=== PATIENT | female | born 1970 | race African-American/Black ===

== ENCOUNTER 2024-01-05 00:33 | Emergency (ER) | payer OTHER ==
[2024-01-05] MEDS ORDERED: NA CHLORIDE 0.9% 1,000 ML ONE (01:18)
[2024-01-05 01:25] LABS: Absolute Basophils 0.1 K/uL (0-0.5); Absolute Eosinophils 0.2 K/uL (0-0.5); Absolute Lymphocytes (CBC) 1.9 K/uL (0.7-4.9); Absolute Monocytes 0.4 K/uL (0.1-1.3); Absolute Neutrophil 3.5 K/uL (1.8-8.0); Basophils % 0.9 % (0-1.3); Eosinophils % 2.9 % (0-4.4); Hematocrit 31.7 % (36.0-45.0); Hemoglobin 10.3 g/dL (12.0-15.0); Lymphocytes % 32.2 % (15.3-44.8); MCH 25.2 pg (27.0-35.0); MCHC 32.5 g/dL (32.0-36.0); MCV 77.5 fL (80-100); MPV 8.6 fL (7.6-11.3); Monocytes % 6.1 % (3.3-12.3); Neutrophils % 57.9 % (41.7-73.7); Nucleated Red Blood Cells % 0.1 % (0-0); Platelets 201 thou/uL (152-406); RBC Red Blood Cell Count 4.09 M/uL (3.86-4.86); Red Cell Distribution Width 15.5 % (12.1-15.2)
[2024-01-05 01:32] LABS: PT Prothrombin Time 11.5 SECONDS (9.5-12.5); Protime INR 1.05
[2024-01-05 01:50] LABS: ALT/SGPT 17 U/L (13-56); AST/SGOT 20 U/L (15-37); Albumin 2.9 g/dL (3.4-5.0); Albumin/Globulin Ratio 0.8 (1.1-1.8); Alkaline Phosphatase 78 U/L (45-117); Anion Gap 8.7 mEq/L (5.0-15.0); BUN Blood Urea Nitrogen 8 mg/dL (7-18); Bicarbonate 25 mEq/L (21-32); Bilirubin Total 0.2 mg/dL (0.2-1.0); Globulin 3.6 g/dL (2.3-3.5); Glomerular Filtration Rate 73 ml/min (=/>90); Glucose Level 259 mg/dL (74-106); NT PRO-BNP 121 pg/mL (<125); Potassium 3.7 mEq/L (3.5-5.1); Protein, Total 6.5 g/dL (6.4-8.2); Sodium Level 134 mEq/L (136-145)
[2024-01-05 02:01] LABS: Bilirubin Direct < 0.2 mg/dL (0-0.2)
--- NOTE | 2024-01-05 03:40 | ER ---
Nurse's Notes [facility] Name: Jesus Manuel Lopez Age: 53 yrs Sex: Female : 1970 Arrival Date: 01/05/2024 Time: 00:33 Bed 4 Private MD: Diagnosis: Muscle weakness (generalized);Hyperglycemia associated with type 2 diabetes mellitus, generalized weakness, dizziness Presentation: 01/04 00:52 Chief complaint: Patient states: I took my normal night time medications. I went to 4 bed. I woke up with chest pain, feeling dizzy, and jittery. The pain is a stabbing pain on my heart that is 9/10. Coronavirus screen: At this time, the client does not indicate any symptoms associated with coronavirus-19. Ebola Screen: No symptoms or risks identified at this time. Initial Sepsis Screen: Does the patient meet any 2 criteria? No. Patient's initial sepsis screen is negative. Does the patient have a suspected source of infection? No. Patient's initial sepsis screen is negative. Risk Assessment: Do you want to hurt yourself or someone else? Patient reports no desire to harm self or others. Onset of symptoms was January 05, 2024. Transition of care: patient was not received from another setting of care. 00:52 Method Of Arrival: Wheelchair jb4 00:52 Acuity: TONE 2 jb4 Historical: - Allergies: 00:55 No Known Allergies; jb4 - PMHx: 00:55 HTN; DM; Herniated Disk; jb4 - PSHx: 00:55 Hysterectomy; ; jb4 - Immunization history:: Adult Immunizations up to date. - Infectious Disease History:: Denies. - Social history:: Smoking status: Patient denies any tobacco usage or history of. - Family history:: not pertinent. Screenin:03 [facility] ED Fall Risk Assessment (Adult) History of falling in the last 3 months, rv including since admission No falls in past 3 months (0 pts) Score/Fall Risk Level 0 - 2 = Low Risk Oriented to surroundings, Maintained a safe environment, Educated pt \T\ family on fall prevention, incl call for assistance when getting out of bed, Assessed \T\ reinforced patient's understanding of fall precautions. Abuse screen: Denies threats or abuse. Denies injuries from another. Nutritional screening: No deficits noted. Tuberculosis screening: No symptoms or risk factors identified. Assessment: 01:03 General: Appears comfortable, Behavior is calm, cooperative. Pain: Complains of pain in rv chest. Neuro: Level of Consciousness is awake, alert, obeys commands, Oriented to person, place, time, situation. Cardiovascular: Capillary refill < 3 seconds Patient's skin is warm and dry. Cardiovascular: Rhythm is regular. Respiratory: Airway is patent Respiratory effort is even, unlabored. GI: No signs and/or symptoms were reported involving the gastrointestinal system. : No signs and/or symptoms were reported regarding the genitourinary system. Derm: Skin is intact. Vital Signs: 00:52 BP 119 / 70; Pulse 67; Resp 16; Temp 97.2(TE); Pulse Ox 99% on R/A; Weight 87.54 kg jb4 (R); Height 5 ft. 3 in. (R); Pain 9/10; 03:23 BP 132 / 77; Pulse 63; Resp 17; Pulse Ox 100% ; rv 00:52 Body Mass Index 34.19 (87.54 kg, 160.02 cm) jb4 00:52 Pain Scale: Adult jb4 Maribel Coma Score: 03:23 Eye Response: spontaneous(4). Motor Response: obeys commands(6). Verbal Response: rv oriented(5). Total: 15. 03:29 Eye Response: spontaneous(4). Motor Response: obeys commands(6). Verbal Response: sp4 oriented(5). Total: 15. ED Course: 00:37 Patient arrived in ED. im 00:55 Triage completed. jb4 00:55 Arm band placed on right wrist. jb4 01:00 Royce Allred, [place] is Primary Nurse. rv 01:03 Patient has correct armband on for positive identification. Client placed on continuous rv cardiac and pulse oximetry monitoring. NIBP monitoring applied. school bus monitor on. 01:03 No provider procedures requiring assistance completed. rv 01:05 EKG done, by ED staff. oe 01:11 Brayan Simpson MD is Attending Physician. sp4 01:11 Inserted saline lock: 20 gauge in left antecubital area, using aseptic technique. Blood rv collected. 01:15 Basic Metabolic Panel Sent. rv 01:15 CBC with Diff Sent. rv 01:15 LFT's Sent. rv 01:15 Magnesium Sent. rv 01:15 NT PRO-BNP Sent. rv 01:15 PT-INR Sent. rv 01:15 Troponin HS Sent. rv 01:15 CRP Sent. rv 01:15 T4 Free Sent. rv 01:15 TSH Sent. rv 01:40 XRAY Chest (1 view) In Process Unspecified. EDMS 03:47 IV discontinued, intact, bleeding controlled, No redness/swelling at site. Pressure rv dressing applied. Administered Medications: 01:19 Drug: NS 0.9% IV 1000 ml IV at 1 bolus Per protocol; 1000 mL bolus Route: IV; Rate: 1 rv bolus; Site: left antecubital; 03:47 Follow up: IV Status: Completed infusion rv 03:48 Follow up: IV Intake: 1000ml rv 01:20 Drug: NS 0.9% IV 1000 ml IV at 125 ml/hr continuous Route: IV; Rate: 125 ml/hr; Site: rv left antecubital; 03:47 Follow up: IV Status: Completed infusion rv Medication: 01:03 VIS not applicable for this client. rv Intake: 03:48 IV: 1000ml; Total: 1000ml. rv Outcome: 03:39 Discharge ordered by MD. aden 03:46 Discharged to home ambulatory, with family, rv 03:46 Condition: good 03:46 Discharge instructions given to patient, Instructed on discharge instructions, follow up and referral plans. medication usage, Demonstrated understanding of instructions, follow-up care, medications, Prescriptions given X 1, 03:48 Patient left the ED. rv Signatures: Dispatcher [employer] EDMS Karel Mccarty, RN RN [email or web address] Gustavo Amin Ronaldo, RN Brayan Gonzalez MD MD sp4 Annelise Hong
--- NOTE | 2024-01-05 03:40 | EDPHYS ---
Physician Documentation [facility] Name: Jesus Manuel Lopez Age: 53 yrs Sex: Female : 1970 Arrival Date: 01/05/2024 Time: 00:33 Bed 4 Private MD: ED Physician Brayan Simpson HPI: 01/04 01:11 This 53 yrs old Black Female presents to ER via Wheelchair with complaints of sp4 Palpitations, General Weakness, Dizziness. 01:22 53-year-old female presents with acute onset of dizziness and palpitations feeling sp4 unwell overall after she took tizanidine and tramadol at home for back pain with sciatica. Patient's past medical history include diabetes type 2, hypertension, hyperlipidemia, sciatica. . Historical: - Allergies: 00:55 No Known Allergies; jb4 - PMHx: 00:55 HTN; DM; Herniated Disk; jb4 - PSHx: 00:55 Hysterectomy; ; jb4 - Immunization history:: Adult Immunizations up to date. - Infectious Disease History:: Denies. - Social history:: Smoking status: Patient denies any tobacco usage or history of. - Family history:: not pertinent. ROS: 03:31 Constitutional: Negative for fever, chills, and weight loss, positive generalized sp4 weakness, palpitations, dizziness 03:31 All other systems are negative, Exam: 03:29 Constitutional: This is a well developed, well nourished patient who is awake, alert, sp4 and in no acute distress. Head/Face: Normocephalic, atraumatic. Eyes: Pupils equal round and reactive to light, extra-ocular motions intact. Lids and lashes normal. Conjunctiva and sclera are not injected. Cornea within normal limits. Periorbital areas with no swelling, redness, or edema. ENT: Nares patent. No nasal discharge, no septal abnormalities noted. Tympanic membranes are normal and external auditory canals are clear. Oropharynx with no redness, swelling, or masses, exudates, or evidence of obstruction, uvula midline. Mucous membranes moist. Neck: Trachea midline, no thyromegaly or masses palpated, and no cervical lymphadenopathy. Supple, full range of motion without nuchal rigidity, or vertebral point tenderness. Chest/axilla: Normal chest wall appearance and motion. Nontender with no deformity. No lesions are appreciated. Cardiovascular: Regular rate and rhythm with a normal S1 and S2. No gallops, murmurs, or rubs. Normal PMI, no JVD. No pulse deficits. Respiratory: Lungs have equal breath sounds bilaterally, clear to auscultation and percussion. No rales, rhonchi or wheezes noted. No increased work of breathing, no retractions or nasal flaring. Abdomen/GI: Soft, with normal bowel sounds. No distension or tympany. No guarding or rebound. No evidence of tenderness throughout. Back: No spinal tenderness. No costovertebral tenderness. Skin: Warm, dry with normal turgor. Normal color with no rashes, no lesions, and no evidence of cellulitis. MS/ Extremity: Pulses equal, no cyanosis. Neurovascular intact. Full, normal range of motion. Neuro: Awake and alert, GCS 15, oriented to person, place, time, and situation. Cranial nerves II-XII grossly intact. Motor strength 5/5 in all extremities. Sensory grossly intact. Psych: Awake, alert, with orientation to person, place and time. Behavior, mood, and affect are within normal limits 03:29 ECG was reviewed by the Attending Physician. Vital Signs: 00:52 BP 119 / 70; Pulse 67; Resp 16; Temp 97.2(TE); Pulse Ox 99% on R/A; Weight 87.54 kg jb4 (R); Height 5 ft. 3 in. (R); Pain 9/10; 03:23 BP 132 / 77; Pulse 63; Resp 17; Pulse Ox 100% ; rv 00:52 Body Mass Index 34.19 (87.54 kg, 160.02 cm) jb4 00:52 Pain Scale: Adult jb4 Maribel Coma Score: 03:23 Eye Response: spontaneous(4). Motor Response: obeys commands(6). Verbal Response: rv oriented(5). Total: 15. 03:29 Eye Response: spontaneous(4). Motor Response: obeys commands(6). Verbal Response: sp4 oriented(5). Total: 15. MDM: 01:12 Patient medically screened. sp4 03:31 Data reviewed: vital signs, nurses notes, old medical records, lab test result(s), EKG, sp4 radiologic studies. ED course: EXAM DESCRIPTION: Chest Single View CLINICAL HISTORY: CHEST PAIN COMPARISON: None. FINDINGS: Single frontal radiograph view of the chest. Cardiomediastinal silhouette: Atherosclerotic calcification of thoracic aorta. Heart is not enlarged. Lungs: No consolidation, pneumothorax, or pleural effusion. Leads overlie the chest. Bones: No acute osseous abnormality. Degenerative change of the spine and shoulders. Upper abdomen: No abnormality identified. IMPRESSION: 1. No acute pulmonary process identified. . 03:33 ED course: Patient is feeling improved after IV hydration. Patient was advised to start sp4 diabetes medication and she will be prescribed starting dose of glipizide 5 mg p.o. daily. Will advise follow-up with [facility] [employer] [facility] for diabetes management. 01/04 01:11 Order name: Basic Metabolic Panel; Complete Time: 03: 01/04 01:11 Order name: CBC with Diff; Complete Time: 03: 01/04 01:11 Order name: LFT's; Complete Time: 03: 01/04 01:11 Order name: Magnesium; Complete Time: 03:01/04 01:11 Order name: NT PRO-BNP; Complete Time: 03:01/04 01:11 Order name: PT-INR; Complete Time: 03: 01/04 01:11 Order name: Troponin HS; Complete Time: 03:01/04 01:12 Order name: TSH; Complete Time: 03:01/04 01:12 Order name: T4 Free; Complete Time: 03: 01/04 01:12 Order name: CRP; Complete Time: 03: 01/04 01:11 Order name: XRAY Chest (1 view) 01/04 01:11 Order name: Cardiac monitoring; Complete Time: :01/04 01:11 Order name: EKG - Nurse/Tech; Complete Time: 01/04 01:11 Order name: IV Saline Lock; Complete Time: :01/04 01:11 Order name: Labs collected and sent; Complete Time: :01/04 01:11 Order name: O2 Per Protocol; Complete Time: 01/04 01:11 Order name: O2 Sat Monitoring; Complete Time: 01:15 sp4 EC:29 Rate is 60 beats/min. Rhythm is regular, Normal Sinus Rhythm. QRS [place] is Normal. [place] sp4 interval is normal. QRS interval is normal. QT interval is normal. No Q waves. T waves are Normal. No ST changes noted. Clinical impression: Normal ECG. Interpreted by me. Reviewed by me. Administered Medications: 01:19 Drug: NS 0.9% IV 1000 ml IV at 1 bolus Per protocol; 1000 mL bolus Route: IV; Rate: 1 rv bolus; Site: left antecubital; 03:47 Follow up: IV Status: Completed infusion rv 03:48 Follow up: IV Intake: 1000ml rv 01:20 Drug: NS 0.9% IV 1000 ml IV at 125 ml/hr continuous Route: IV; Rate: 125 ml/hr; Site: rv left antecubital; 03:47 Follow up: IV Status: Completed infusion rv Disposition Summary: 01/05/24 03:39 Discharge Ordered Notes: Location: Home sp4 Problem: new sp4 Symptoms: have improved sp4 Condition: Stable sp4 Diagnosis - Muscle weakness (generalized) sp4 - Hyperglycemia associated with type 2 diabetes mellitus, generalized weakness, sp4 dizziness Followup: sp4 - With: Private Physician - When: 7 - 10 days - Reason: Recheck today's complaints Discharge Instructions: - Discharge Summary Sheet sp4 - Hyperglycemia, [id number] sp4 Forms: - Patient Portal Instructions sp4 - Work release form [id number] Prescriptions: - Glipizide 5 mg Oral tablet - take 1 tablet ORAL route once daily for 30 days before a meal; 30 tablet; sp4 Refills: 0, Product Selection Permitted Signatures: Dispatcher [employer] Karel Peterson RN RN jb4 Royce Allred RN RN rv Brayan Simpson MD MD sp4 Corrections: (The following items were deleted from the chart) 01:12 01:12 BASIC METABOLIC PANEL+C.LAB.BRZ ordered. EDMS EDMS 01:12 01:12 CBC+H.LAB.BRZ ordered. EDMS EDMS 01:12 01:12 HEPATIC FUNCTION+C.LAB.BRZ ordered. EDMS EDMS 01:12 01:12 MAGNESIUM+C.LAB.BRZ ordered. EDMS EDMS 01:12 01:12 PROBNP+C.LAB.BRZ ordered. EDMS EDMS 01: 01:12 PROTIME (+INR)+COAG.LAB.BRZ ordered. EDMS EDMS : 01:12 Troponin High Sensitivity+C.LAB.BRZ ordered. EDMS EDMS : 01:12 Chest Single View+RAD.RAD.BRZ ordered. EDMS EDMS : 01:12 THYROID STIMULAT HORMONE+C.LAB.BRZ ordered. EDMS EDMS : 01:12 T4 FREE+C.LAB.BRZ ordered. EDMS EDMS :12 01:12 C-REACTIVE PROTEIN+C.LAB.BRZ ordered. EDMS EDMS :12 01:12 Urinalysis W/Microscopic+U.LAB.BRZ ordered. EDMS EDMS
[2024-01-05 04:23] VITALS: BP 132/77; TEMP 97.2; O2SAT 100
--- NOTE | 2024-01-05 13:17 | EKG ---
Test Date: 2024-01-05 Test Time: 00:59:49 Instructional Design Specialist: JARAD MEASUREMENT RESULTS: Intervals: Rate: 60 FL: 170 QRSD: 80 QT: 438 QTc: 438 Iron: P: 52 FL: 170 QRS: 67 T: 62 INTERPRETIVE STATEMENTS: Normal sinus rhythm Normal ECG No previous ECG available for comparison Electronically Signed On 01-05-24 13:16:47 CDT by Santosh Wick
--- NOTE | 2024-01-05 13:53 | RAD REPORT ---
EXAM DESCRIPTION: RAD - Chest Single View - 01/05/2024 1:39 am CLINICAL HISTORY: CHEST PAIN COMPARISON: None. FINDINGS: Single frontal radiograph view of the chest. Cardiomediastinal silhouette: Atherosclerotic calcification of thoracic aorta. Heart is not enlarged. Lungs: No consolidation, pneumothorax, or pleural effusion. Leads overlie the chest. Bones: No acute osseous abnormality. Degenerative change of the spine and shoulders. Upper abdomen: No abnormality identified. IMPRESSION: 1. No acute pulmonary process identified. Electronically signed by: Freddy Freedman DO 01/05/2024 02:13 AM CDT M Due to temporary technical issues with the PACS/Fluency reporting system, reports are being signed by the in house radiologist without review as a courtesy to ensure prompt reporting. The interpreting r adiologist is fully responsible for the content of the report.
== END 2024-01-05 03:48 | disposition home or self-care (01) ==
LOC: ER 00:33
DX: E11.65 Type 2 diabetes mellitus with hyperglycemia (principal); R42 Dizziness and giddiness; R53.1 Weakness; I10 Essential (primary) hypertension
CPT/HCPCS: 96361; 93005; 85025; 80048; 36415; 83735; 85610; 80076; 84443; 84484; 84439; 83880; 86140; 71045; 96360; 99285; J7030

== ENCOUNTER 2025-01-07 05:24 | Emergency (ER) | payer OTHER, SELFPAY ==
--- OUTSIDE RECORDS SUMMARY | 2025-01-07 05:30 | XMS REPORT | Continuity of Care Document ---
Author Name Unknown Address [address] [facility] [place] [address] Organization [facility] [place] Address [address] [facility] [place] [address] Care Team Providers Care Director Of Recreation Therapy Name Role Phone CLAY DAVID Primary Care Physician HEMANTH Almeida Attending Clinician Unavailabl TK Locke Attending Clinician Unavailable RALPH PARADA Attending Clinician Unavailable [id number] Attending Clinician Unavailable SMDC, BDC CONFERENCE Attending Clinician Unavail able CONFERENCE, BDC Attending Clinician Unavailable ZULAY HOPE Attending Clinician Unavailab JODI valderrama DO Attending Clinician Unavailable MD CHRISTEN Attending Clinician Unavailab DASHAWN Joseph Attending Clinician Unavailable AGUSTINA KRISHNAMURTHY Attending Clinician Unavailable CHAITANYA POLLOCK Attending Clinician Unavailable RADHIKA WAY Attending Clinician Unava RIVERA Isaac Attending Clinician Unavailable EMELY BLANKENSHIP Attending Clinician Unav ROB Campos Attending Clinician Unavailable [id number] Attending Clinician Unavailable Marisela_GONZÁLEZ Attending Clinician Unavailab Jenny Sloan Attending Clinician Unavailable Jenny Collins Attending Clinician Narendra Attending Clinician Unavailable LAURENCE REYES Attending Clinician Unavailab jannie TorresHOU_NP Admitting Clinician Unavailab Jenny Sloan Admitting Clinician Unavailable Maura_Krishan Admitting Clinician Unavailable Physician, No Primary or Family Admitting Clinic chavez Unavailable Payers Payer Name Policy Type Policy Number Effective Date Expirati on Date Source SILVER 5 [employer] 94 9 [id number] 2024 00:00:00 [facility] JOHN PIMENTEL COPAY FOCUS 9 [id number] 2024 00:00:00 [place] [facility] BALANCED [facility] 3 (HMO) [id number] HIM [facility] FROM [facility] [id number] 2023 00:00:00 [facility] [id number] [place] [facility] 4 (O) [id number] Problems Condition Name Condition Details Condition Category Status Onset Date Resolution Date Last Treatment Date Treating Clinician Comments Source Well adult exam Well adult exam Disease Active 12-22 00:00: 00 Marita Nelsona marlon Primary hypertensi on - Controlled Primary hypertensi on - Controlled Disease Active 02-15 00:00: 00 Marita Lopez Externa l Immunodefi 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 (CMS/HCC) (multi HCC) - Not Controlled Immunodefi 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 (CMS/HCC) (multi HCC) - Not Controlled Disease Active 02-15 00:00: 00 Marita Nelsona l Hyperglyce rachel due to type 2 diabetes mellitus Hyperglyce rachel Due to Type 2 Diabetes Mellitus Problem Active 2022-08 00:00: 00 [facility] Secondary immune deficiency disorder Secondary Immune Deficiency Disorder Problem Active 2022-08 00:00: 00 [facility] Migraine without aura Migraine without Aura Problem Active 2022-08 00:00: 00 [facility] Allergic conjunctiv itis Allergic Conjunctiv itis Problem Active 2022-08 00:00: 00 [facility] Nausea Nausea Problem Active 02-27 00:00: 00 [facility] Peripheral venous insufficie ncy Peripheral Venous Insufficie ncy Problem Active 01-20 00:00: 00 [facility] Hyperthyro idism Hyperthyro idism Problem Active 01-04 00:00: 00 [facility] Mixed hyperlipid emia Mixed Hyperlipid emia Problem Active 01-04 00:00: 00 [facility] Mixed hyperlipid emia due to type 2 diabetes mellitus Mixed Hyperlipid emia Due to Type 2 Diabetes Mellitus Problem Active 01-04 00:00: 00 [facility] Serum thyroid stimulatin g hormone level outside reference range Serum Thyroid Stimulatin g Hormone Level outside Reference Range Problem Active 12-25 00:00: 00 [facility] Migraine Migraine Problem Active 12-17 00:00: 00 [facility] Essential hypertensi on Essential Hypertensi on Problem Active 12-17 00:00: 00 [facility] Headache Headache Problem Active 12-17 00:00: 00 [facility] Dyspnea on exertion Dyspnea on Exertion Problem Active 12-17 00:00: 00 [facility] Electrocar diogram abnormal Electrocar diogram Abnormal Problem Active 12-17 00:00: 00 [facility] Swelling of bilateral lower limbs Swelling of Bilateral Lower Limbs Problem Active 12-17 00:00: 00 [facility] URINARY SYMPTOMS URINARY SYMPTOMS Active 03/18/2019 [facility] Diagnosis Active 2018-0 03-18 00:00: 00 2019-03-18 05:27:00 Julia Dan BACK PAIN BACK PAIN Active 04/08/2018 [facility] Diagnosis Active 2017-0 8-15 00:00: 00 2018-11-20 17:03:00 Julia Dan NECK PAIN, HEADACHE NECK PAIN, HEADACHE Active 05/12/2015 [facility] Diagnosis Active 2014-0 9-18 00:00: 00 2015-05-13 00:37:00 Julia Dan Fall in (into) shower or empty bathtub, initial encounter Fall in (into) shower or empty bathtub, initial encounter 10/26/2018 [facility] Problem 2018-10-26 15:49:16 Julia Dan Escherichi a coli (organism) Escherichi a coli (organism) Active Problem 03/20/2019 Problem added by Discern Expert. [facility] Problem Active 2019-03-20 21:08:19 Julia Dan AR (allergic rhinitis) AR (allergic rhinitis) Disease Active Marita Seybold - Externa l Asthma (HHS-HCC) Asthma (HHS-HCC) Disease Active Marita Seybold - Externa l Chronic low back pain Chronic low back pain Disease Active Marita Seybold - Externa l DM (diabetes mellitus) (multi HCC) DM (diabetes mellitus) (multi HCC) Disease Active Marita Seybold - Externa l Hyperlipid emia Hyperlipid emia Disease Active Marita Seybold - Externa l Chronic pain syndrome Chronic pain syndrome Disease Active Marita Seybold - Externa l Obesity Obesity Disease Active Marita Seybold - Externa l History of hysterecto my History of hysterecto my Disease Active Marita Seybold - Externa l Mild major depression Mild major depression Disease Active Marita Seybold - Externa l Type 2 diabetes mellitus with hyperlipid emia (multi HCC) Type 2 diabetes mellitus with hyperlipid emia (multi HCC) Disease Active Marita Seybold - Externa l History of Past Illness Condition Name Condition Details Condition Category Status Onset Date Resolution Date Last Treatment Date Treating Clinician Comments Source Urinary tract infection, site not specified Urinary tract infection, site not specified 03/18/2019 03/20/2019 [facility] Problem 2018-- 17:00: 00 2019-03-20 21:08:19 2019-03-20 21:08:19 Julia Dan Unspecifie d abdominal pain Unspecifie d abdominal pain 03/18/2019 03/20/2019 [facility] Problem 2018-0 - 17:00: 00 2019-03-20 21:08:19 2019-03-20 21:08:19 Julia Dan Strain of muscle, fascia and tendon of lower back, initial encounter Strain of muscle, fascia and tendon of lower back, initial encounter 04/08/2018 10/26/2018 [facility] Problem 2017-0 8-15 05:00: 00 2018-10-26 15:49:16 2018-10-26 15:49:16 Julia Dan Unspecifie d fall, initial encounter Unspecifie d fall, initial encounter 04/08/2018 10/26/2018 [facility] Problem 2018-0 8-15 05:00: 00 2018-10-26 15:49:16 2018-10-26 15:49:16 Memoria marlon Dan Discharge Diagnosis: Cervical strain Discharge Diagnosis: Cervical strain 05/13/2015 [facility] Problem 05-13 05:00: 00 2015-05-16 02:05:25 2015-05-16 02:05:25 Julia Dan Allergies, Adverse Reactions, Alerts Allergy Name Allergy Type Status Severity Reaction(s) Onset Date Inactive Date Treating Clinician Comments Source Metformi n Propensi ty to adverse reaction s to drug Active Nausea and Vomiting 12-29 00:00: 00 Other Reaction( s): Dizziness Marita Cobosold - Externa l Metformi n Propensi ty to adverse reaction s Active 12-29 00:00: 00 Other Reaction( s): Dizziness Marita Altman - Externa l [place] Propensi ty to adverse reaction s Active Hives 12-29 00:00: 00 Marita Altman - Externa l Tomato Propensi ty to adverse reaction s Active Hives 12-29 00:00: 00 Marita Altman - Externa l CODEINE DRUG INGREDI Active Swelling 2022-08 00:00: 00 [facility] Codeine Allergy to substanc e Active Swelling 2022-08 00:00: 00 [facility] Codeine Propensi ty to adverse reaction s Active Swelling 2022-08 00:00: 00 Marita Altman - Externa l NO KNOWN ALLERGIE S Drug Class Active [facility] Metformi n Allergy to substanc e Active Mild Dizziness [facility] ORANGE Allergy to substanc e Active Hives [facility] TOMATO Allergy to substanc e Active Hives [facility] No Known Medicati on Allergie s No Known Medicati on Allergie s Active Julia Dan Social History Social Habit Start Date Stop Date Quantity Comments Source ASSERTION Not Marita Huff Sexual orientation Jenny Lopez External Alcoholic beverage intake 2024-12-22 00:00:00 2024-12-22 00:00:00 Lifetime non-drinker (finding) Marita Seybold - External History of Social function 2024-12-22 00:00:00 2024-12-22 00:00:00 Marita Altman - External Education 2024-12-22 00:00:00 2024-12-22 00:00:00 17 Marita Altman - External Tobacco use and exposure 2024-02-16 00:00:00 2024-02-16 00:00:00 Smokeless tobacco non-user Marita Altman - External Sex 2023-07-24 08:02:35 2023-07-24 08:02:35 Female (finding) Marita Altman - External Social History 2019-03-18 10:28:18 2019-03-18 10:28:18 [facility] Sex assigned at 1970 00:00:00 1970 00:00:00 Marita Altman - External Smoking Status Start Date Stop Date Source Tobacco smoking consumption unknown [facility] Never smoked tobacco Marita Altman - External Medications Ordered Medication Name Filled Medication Name Start Date Stop Date Current Medication? Ordering Clinician Indication Dosage Frequency Signature (SIG) Comments Components Source Atogepant 60 MG oral Tablet 12-22 15:50: 31 12-22 00:00 :00 No 60mg QD Take 1 tablet (60 mg total) by mouth daily Pt stated for headaches. . Marita mason Ibuprofen (MOTRIN) 800 MG oral Tablet 12-22 15:46: 33 12-22 00:00 :00 No 800mg Q.25D Take 1 tablet (800 mg total) by mouth every 6 hours as needed for pain. Marita mason Accu-Chek Softclix Lancets does not apply Misc 12-22 15:25: 40 Yes by other route. Marita mason Sumatriptan Succinate 50 MG oral Tablet 12-22 15:25: 40 Yes 25mg Take 0.5 tablets (25 mg total) by mouth once as needed for migraine (May repeat in 2 hours if unresolved . Do not exceed 200 mg in 24 hours.). Marita mason Trulicity 3 MG/0.5ML subcutaneou s Solution Auto-inject or 12-22 00:00: 00 Yes [id number] 3mg Q1W Inject 3 mg into the skin once a week. Marita mason glipiZIDE 5 MG oral Tablet 12-22 00:00: 00 Yes [id number] 5mg Take 1 tablet (5 mg total) by mouth daily (before a meal). Marita mason Diclofenac Sodium 75 MG oral Tablet Delayed Response 12-22 00:00: 00 Yes [id number] 75mg Take 1 tablet (75 mg total) by mouth every 12 hours as needed Prn pain. Marita mason Levocetiriz ine Dihydrochlo ride 5 MG oral Tablet 12-22 00:00: 00 Yes [id number] 5mg QD Take 1 tablet (5 mg total) by mouth daily. Marita mason Losartan Potassium (COZAAR) 100 MG oral Tablet 12-22 00:00: 00 Yes [id number] 100mg QD Take 1 tablet (100 mg total) by mouth daily. Marita mason Tramadol HCl (ULTRAM) 50 MG oral Tablet 12-22 00:00: 00 Yes [id number] 100mg QD Take 2 tablets (100 mg total) by mouth daily as needed for pain Driving Precaution s / No alcohol / No operating machinery. Marita mason Tizanidine HCl 4 MG oral Tablet 12-22 00:00: 00 Yes [id number] 4mg QD Take 1 tablet (4 mg total) by mouth daily as needed for muscle spasms. Marita mason Atogepant 60 MG oral Tablet 12-22 00:00: 00 Yes [id number] 60mg QD Take 1 tablet (60 mg total) by mouth daily as needed (migraine) Pt stated for headaches. . Marita mason Gabapentin 300 MG oral Capsule 12-21 00:00: 00 Yes 1 po cap in the morning, 2 cap at night.. Marita mason Tramadol HCl (ULTRAM) 50 MG oral Tablet 2025-0 4-29 00:00: 00 12-22 00:00 :00 No [id number] 100mg Q.[id number] 3D Take 2 tablets (100 mg total) by mouth every 8 hours as needed for pain Driving Precaution s / No alcohol / No operating machinery. Marita mason Tizanidine HCl 4 MG oral Tablet 12-21 00:00: 00 12-22 00:00 :00 No [id number] 4mg Q.25D Take 1 tablet (4 mg total) by mouth every 6 hours as needed for muscle spasms. Marita mason Ondansetron HCl 4 MG oral Tablet 12-02 00:00: 00 Yes [id number] 4mg Q.[id number] 3D Take 1 tablet (4 mg total) by mouth every 8 hours as needed for nausea. Marita mason Dulaglutide 4.5 MG/0.5ML subcutaneou s Solution Auto-inject or 12-02 00:00: 00 12-22 00:00 :00 No [id number] 07 4.5mg Q1W Inject 4.5 mg into the skin once a week. Marita mason Ibuprofen (MOTRIN) 800 MG oral Tablet 11-03 14:39: 33 Yes 800mg Q.25D Take 1 tablet (800 mg total) by mouth every 6 hours as needed for pain. Marita mason Accu-Chek Softclix Lancets does not apply [facility] [place]-03 14:38: 40 Yes by other route. Marita mason Atogepant 60 MG oral Tablet 11-03 14:38: 40 Yes 60mg QD Take 1 tablet (60 mg total) by mouth daily Pt stated for headaches. . Marita mason Sumatriptan Succinate 50 MG oral Tablet 11-03 14:38: 40 Yes 25mg Take 0.5 tablets (25 mg total) by mouth once as needed for migraine (May repeat in 2 hours if unresolved . Do not exceed 200 mg in 24 hours.). Marita mason Tizanidine HCl 4 MG oral Tablet 3-12 00:00: 00 Yes [id number] 4mg Q.25D Take 1 tablet (4 mg total) by mouth every 6 hours as needed for muscle spasms. Marita mason Tramadol HCl (ULTRAM) 50 MG oral Tablet 3-12 00:00: 00 Yes [id number] 100mg Q.[id number] 3D Take 2 tablets (100 mg total) by mouth every 8 hours as needed for pain Driving Precaution s / No alcohol / No operating machinery. Marita mason Dulaglutide 3 MG/0.5ML subcutaneou s Solution Auto-inject or 10-21 00:00: 00 Yes [id number] 3mg Q1W Inject 3 mg into the skin once a week. Marita mason Accu-Chek Softclix Lancets does not apply Mis 09-28 10:16: 46 Yes by other route. Marita mason Dulaglutide (Trulicity) 1.5 MG/0.5ML subcutaneou s Solution Auto-inject or 2- 00:00: 00 Yes [id number] 1.5mg Q1W Inject 1.5 mg into the skin once a week. Marita mason Tizanidine HCl 4 MG oral Tablet 2- 00:00: 00 Yes [id number] 4mg Q.25D Take 1 tablet (4 mg total) by mouth every 6 hours as needed for muscle spasms. Marita mason Ondansetron (ZOFRAN) 4 MG oral TABLET DISPERSIBLE 2-04 00:00: 00 Yes [id number] 4mg Q.[id number] 3D Take 1 tablet (4 mg total) by mouth every 8 hours as needed for nausea. Marita mason Tizanidine HCl 4 MG oral Tablet 2-04 00:00: 00 12 00:00 :00 No [id number] 4mg Q.25D Take 1 tablet (4 mg total) by mouth every 6 hours as needed for muscle spasms. Marita mason Trulicity 1.5 MG/0.5ML subcutaneou s Solution Auto-inject or 09-20 00:00: 00 09-28 00:00 :00 No [id number] 1.5mg Q1W INJECT 1.5 MG UNDER THE SKIN ONCE WEEKLY Marita mason Dulaglutide (Trulicity) 1.5 MG/0.5ML subcutaneou s Solution Auto-inject or 09-14 00:00: 00 Yes [id number] 1{syrin ge} Q1W Inject 1 syringe into the skin once a week. Marita mason Escitalopra m Oxalate 10 MG oral Tablet 09-08 00:00: 00 Yes [id number] 10mg QD Take 1 tablet by mouth once daily Marita mason Accu-Chek Softclix Lancets does not apply Mis 2023-08 10:50: 10 Yes by other route. Marita mason Gabapentin 300 MG oral Capsule 2023-08 00:00: 00 Yes 1 po cap bid. Marita mason Diclofenac Sodium 75 MG oral Tablet Delayed Response 2023-08 00:00: 00 12-22 00:00 :00 No 75mg Take 1 tablet (75 mg total) by mouth every 12 hours as needed Prn pain. Marita mason Tramadol HCl (ULTRAM) 50 MG oral Tablet 2023-08 00:00: 00 11-03 00:00 :00 No 50mg Q.25D Take 1 tablet (50 mg total) by mouth every 6 hours as needed for pain Driving Precaution s / No alcohol / No operating machinery. Marita mason Accu-Chek Softclix Lancets does not apply Mis 2023-08 13:06: 47 Yes by other route. Marita mason Dulaglutide (Trulicity) 1.5 MG/0.5ML subcutaneou s Solution Pen-injecto r 2023-08 00:00: 00 Yes [id number] 1.5mg Q1W Inject 1.5 mg into the skin once a week. Marita mason Dulaglutide (Trulicity) 1.5 MG/0.5ML subcutaneou s Solution Pen-injecto r 2023-08 00:00: 00 Yes [id number] 1.5mg Q1W Inject 1.5 mg into the skin once a week. Marita mason hydroCHLORO thiazide 25 MG oral Tablet 2023-08 00:00: 00 Yes [id number] 25mg QD Take 1 tablet (25 mg total) by mouth daily. Marita mason Escitalopra m Oxalate 10 MG oral Tablet 2023-08 00:00: 00 09-09 05:59 :00 No [id number] 10mg QD Take 1 tablet (10 mg total) by mouth daily. Marita mason Diclofenac Sodium 75 MG oral Tablet Delayed Response 04-23 00:00: 00 07-01 00:00 :00 No TAKE 1 TABLET BY MOUTH TWICE DAILY NEEDED FOR PAIN (STOP IBUPROFEN) Marita mason Tramadol HCl (ULTRAM) 50 MG oral Tablet 04-22 00:00: 00 07-01 00:00 :00 No 50mg Q.25D Take 1 tablet (50 mg total) by mouth every 6 hours as needed for pain Driving Precaution s / No alcohol / No operating machinery. Marita mason Trulicity 1.5 MG/0.5ML subcutaneou s Solution Pen-injecto r 8 00:00: 00 06-10 00:00 :00 No [id number] Q1W inject 1 syringe subcutaneo usly once a week Marita mason Candesartan Cilexetil 16 MG oral Tablet 02-15 09:58: 59 02-15 00:00 :00 No 1{tbl} Take 1 tablet by mouth daily. Marita mason Accu-Chek Softclix Lancets does not apply Misc 02-15 09:56: 30 Yes by other route. Marita mason Trulicity 1.5 MG/0.5ML subcutaneou s Solution Pen-injecto r 02-15 00:00: 00 Yes [id number] 1.5mg Inject 1.5 mg into the skin once a week. Marita mason Ondansetron (ZOFRAN) 4 MG oral TABLET DISPERSIBLE 02-15 00:00: 00 09-28 00:00 :00 No [id number] 4mg Q.[id number] 3D Take 1 tablet (4 mg total) by mouth every 8 hours as needed for nausea. Marita mason hydroCHLORO thiazide 12.5 MG oral Capsule 02-15 00:00: 00 06-10 00:00 :00 No [id number] 12.5mg QD Take 1 capsule (12.5 mg total) by mouth daily. Marita mason Accu-Chek Softclix Lancets does not apply Misc 01-25 14:01: 16 Yes by other route. Marita mason Candesartan Cilexetil 16 MG oral Tablet 01-25 14:01: 16 Yes 1{tbl} Take 1 tablet by mouth daily. Marita mason Tramadol HCl (ULTRAM) 50 MG oral Tablet 01-25 00:00: 00 Yes 50mg Q.25D Take 1 tablet (50 mg total) by mouth every 6 hours as needed for pain Driving Precaution s / No alcohol / No operating machinery. Marita mason Diclofenac Sodium 75 MG oral Tablet Delayed Response 01-25 00:00: 00 Yes 75mg Take 1 tablet (75 mg total) by mouth 2 times daily Prn pain. Stop ibuprofen. . Marita mason Gabapentin 300 MG oral Capsule 01-25 00:00: 00 07-01 00:00 :00 No 1 cap po qhs x7d, then 1 cap bid x 7d, then 1 cap tid. Marita mason Trulicity 0.75 MG/0.5ML subcutaneou s Solution Pen-injecto r 14 00:00: 00 02-15 00:00 :00 No [id number] .75mg Inject 0.75 mg into the skin once a week. Marita mason GlipiZIDE 5 MG oral TABLET SR 24 HR 01-01 00:00: 00 02-15 00:00 :00 No [id number] 5mg Take 1 tablet (5 mg total) by mouth daily. Marita mason Accu-Chek Softclix Lancets does not apply Misc 12-29 11:36: 21 Yes by other route. Marita mason Candesartan Cilexetil 16 MG oral Tablet 12-29 11:36: 21 Yes 1{tbl} Take 1 tablet by mouth daily. Marita mason LEVOCETIRIZ INE DIHYDROCHLO RIDE OR 12-29 11:36: 21 Yes [id number] Take by mouth. Marita mason Albuterol HFA 108 (90 Base) MCG/ACT IN AERS 12-29 00:00: 00 Yes [id number] 2{puff} Q.25D Inhale 2 puffs into the lungs every 6 hours as needed for wheezing. Marita mason Albuterol HFA 108 (90 Base) MCG/ACT IN AERS 12-29 00:00: 00 Yes [id number] 2{puff} Q.25D Inhale 2 puffs into the lungs every 6 hours as needed for wheezing. Marita mason Albuterol HFA 108 (90 Base) MCG/ACT IN AERS 12-29 00:00: 00 Yes [id number] 2{puff} Q.25D Inhale 2 puffs into the lungs every 6 hours as needed for wheezing. Marita mason Losartan Potassium (COZAAR) 100 MG oral Tablet 12-29 00:00: 00 Yes [id number] 100mg QD Take 1 tablet (100 mg total) by mouth daily. Marita mason Albuterol HFA 108 (90 Base) MCG/ACT IN AERS 12-29 00:00: 00 Yes [id number] 2{puff} Q.25D Inhale 2 puffs into the lungs every 6 hours as needed for wheezing. Marita mason Losartan Potassium (COZAAR) 100 MG oral Tablet 12-29 00:00: 00 Yes [id number] 100mg QD Take 1 tablet (100 mg total) by mouth daily. Marita mason Albuterol HFA 108 (90 Base) MCG/ACT IN AERS 12-29 00:00: 00 Yes [id number] 2{puff} Q.25D Inhale 2 puffs into the lungs every 6 hours as needed for wheezing. Marita mason Atorvastati n Calcium 20 MG oral Tablet 12-29 00:00: 00 Yes [id number] 20mg QD Take 1 tablet (20 mg total) by mouth daily. Marita mason Albuterol HFA 108 (90 Base) MCG/ACT IN AERS 12-29 00:00: 00 Yes [id number] 2{puff} Q.25D Inhale 2 puffs into the lungs every 6 hours as needed for wheezing. Marita mason Ibuprofen (MOTRIN) 800 MG oral Tablet 12-29 00:00: 00 Yes [id number] 800mg Q.[id number] 3D Take 1 tablet (800 mg total) by mouth every 8 hours as needed for pain. Marita mason Losartan Potassium (COZAAR) 100 MG oral Tablet 12-29 00:00: 00 12-22 00:00 :00 No [id number] 100mg QD Take 1 tablet (100 mg total) by mouth daily. Marita mason Levocetiriz ine Dihydrochlo ride 5 MG oral Tablet 12-29 00:00: 00 12-22 00:00 :00 No [id number] 5mg QD Take 1 tablet (5 mg total) by mouth daily. Marita mason Tizanidine HCl 4 MG oral Tablet 12-29 00:00: 00 09-28 00:00 :00 No [id number] 4mg Q.25D Take 1 tablet (4 mg total) by mouth every 6 hours as needed for muscle spasms. Marita mason Ibuprofen (MOTRIN) 800 MG oral Tablet 12-29 00:00: 00 02-15 00:00 :00 No [id number] 800mg Q.[id number] 3D Take 1 tablet (800 mg total) by mouth every 8 hours as needed for pain. Marita mason Tramadol HCl (ULTRAM) 50 MG oral Tablet 12-29 00:00: 00 01-25 00:00 :00 No [id number] 50mg Q.25D Take 1 tablet (50 mg total) by mouth every 6 hours as needed for pain. Marita mason Semaglutide (Rybelsus) 3 MG oral Tablet 12-29 00:00: 00 12-29 00:00 :00 No [id number] 1{tbl} Take 1 tablet by mouth every morning. Marita mason Ibuprofen (MOTRIN) 800 MG oral Tablet 12-29 00:00: 00 12-29 00:00 :00 No [id number] 800mg Q.[id number] 3D Take 1 tablet (800 mg total) by mouth every 8 hours as needed for pain. Marita mason NaCl 0.9% (NS) bolus infusion 1,000 mL 2022-08 03:00: 00 07-03 03:00 :00 No 1000mL at 999 mL/hr, 1,000 mL, IV Infusion, ONCE, 1 dose, On Fri07/02/23 at 2100, STAT [facility] metFORMIN 500 mg tablet 2022-08 00:00: 00 08-02 05:59 :00 No [id number] 500mg Take 1 tablet by mouth in the morning and 1 tablet in the evening. Do all this for 30 days. [facility] Cefuroxime 500 MG Oral Tablet 03-18 11:30: 00 Yes 500 mg = 1 tab, PO, BID, X 7 day, # 14 tab, 0 Refill(s) Cristhianmanuel marlon Sy Ceftriaxone 03-18 11:26: 00 No Notes: (Same As: Rocephin). Use with 100 mL NS and infuse over 30 min MEDICATION WASTE Product Size: 1000 mg Product Wasted: ___ mg Cristhianmanuel marlon Dan Pyridium 03-18 08:44: 00 No Notes: Give with meals. (Same as: Pyridium) Julia Dan cyclobenzap rine 10 mg oral tablet 04-08 10:54: 00 No 10 mg = 1 tab, PO, TID, PRN for spasms, X 5 day, # 15 tab, 0 Refill(s) Julia Dan Naproxen 500 MG Oral Tablet [Naprosyn] 04-08 10:53: 00 No 500 mg = 1 tab, PO, BID, PRN Pain, X 7 day, # 14 tab, 0 Refill(s) Julia Dan Ketorolac 04-08 08:16: 00 No 4 days MEDICATION WASTE Product Size: 30 mg Product Wasted: ___ mg Julia marlon Dan cyclobenzap rine 04-08 08:16: 00 No Notes: (Same As: Flexeril) Julia Dan tramadol hydrochlori de 50 MG Oral Tablet 05-13 07:05: 00 Yes 50 mg = 1 tab, PO, Q6H, PRN Pain, X 5 day, # 20 tab, 0 Refill(s) Julia Dan Methocarbam ol 500 MG Oral Tablet [Robaxin] 05-13 07:04: 00 Yes 1-2 tab, PO, QID, PRN as needed for muscle spasms/ pain, may cause sedation, X 5 day, # 40 tab, 0 Refill(s) Julia Dan Robaxin 05-13 04:38: 00 No Notes: (Same as:Robaxin ) Julia Dan Accu-Chek Softclix Lancets Accu-Chek Softclix Lancets No Accu-Chek Softclix Lancets [facility] azelastine 0.05 % eye drops INSTILL 1 DROP INTO AFFECTED EYE TWICE A DAY azelastine 0.05 % eye drops INSTILL 1 DROP INTO AFFECTED EYE TWICE A DAY No azelastine 0.05 % eye drops INSTILL 1 DROP INTO AFFECTED EYE TWICE A DAY [facility] fenofibrate nanocrystal lized 145 mg tablet Take 1 tablet every day by oral route for 90 days. fenofibrate nanocrystal lized 145 mg tablet Take 1 tablet every day by oral route for 90 days. No 1 Q1D fenofibrat e nanocrysta llized 145 mg tablet Take 1 tablet every day by oral route for 90 days. [facility] fluticasone propionate 50 mcg/actuati on nasal spray,suspe nsion SPRAY 1 SPRAY BY INTRANASAL ROUTE EVERY DAY fluticasone propionate 50 mcg/actuati on nasal spray,suspe nsion SPRAY 1 SPRAY BY INTRANASAL ROUTE EVERY DAY No fluticason e propionate 50 mcg/actuat ion nasal spray,susp ension SPRAY 1 SPRAY BY INTRANASAL ROUTE EVERY DAY [facility] hydrochloro thiazide 12.5 mg tablet 1 tablet a day hydrochloro thiazide 12.5 mg tablet 1 tablet a day No hydrochlor othiazide 12.5 mg tablet 1 tablet a day [facility] metformin ER 500 mg tablet,exte nded release 24 hr Take 1 tablet every day by oral route at dinner for 90 days. metformin ER 500 mg tablet,exte nded release 24 hr Take 1 tablet every day by oral route at dinner for 90 days. No 1 Q1D metformin ER 500 mg tablet,ext ended release 24 hr Take 1 tablet every day by oral route at dinner for 90 days. [facility] montelukast 10 mg tablet TAKE 1 TABLET BY MOUTH EVERY DAY FOR 30 DAYS montelukast 10 mg tablet TAKE 1 TABLET BY MOUTH EVERY DAY FOR 30 DAYS No montelukas t 10 mg tablet TAKE 1 TABLET BY MOUTH EVERY DAY FOR 30 DAYS [facility] tramadol 50 mg tablet Take 1 tablet every 6 hours by oral route as needed for 7 days. tramadol 50 mg tablet Take 1 tablet every 6 hours by oral route as needed for 7 days. No 1 Q6H tramadol 50 mg tablet Take 1 tablet every 6 hours by oral route as needed for 7 days. [facility] Accu-Chek Softclix Lancets Accu-Chek Softclix Lancets No Accu-Chek Softclix Lancets [facility] azelastine 0.05 % eye drops INSTILL 1 DROP INTO AFFECTED EYE TWICE A DAY azelastine 0.05 % eye drops INSTILL 1 DROP INTO AFFECTED EYE TWICE A DAY No azelastine 0.05 % eye drops INSTILL 1 DROP INTO AFFECTED EYE TWICE A DAY [facility] fenofibrate nanocrystal lized 145 mg tablet Take 1 tablet every day by oral route for 90 days. fenofibrate nanocrystal lized 145 mg tablet Take 1 tablet every day by oral route for 90 days. No 1 Q1D fenofibrat e nanocrysta llized 145 mg tablet Take 1 tablet every day by oral route for 90 days. [facility] fluticasone propionate 50 mcg/actuati on nasal spray,suspe nsion SPRAY 1 SPRAY BY INTRANASAL ROUTE EVERY DAY fluticasone propionate 50 mcg/actuati on nasal spray,suspe nsion SPRAY 1 SPRAY BY INTRANASAL ROUTE EVERY DAY No fluticason e propionate 50 mcg/actuat ion nasal spray,susp ension SPRAY 1 SPRAY BY INTRANASAL ROUTE EVERY DAY [facility] hydrochloro thiazide 12.5 mg tablet 1 tablet a day hydrochloro thiazide 12.5 mg tablet 1 tablet a day No hydrochlor othiazide 12.5 mg tablet 1 tablet a day [facility] metformin ER 500 mg tablet,exte nded release 24 hr Take 1 tablet every day by oral route at dinner for 90 days. metformin ER 500 mg tablet,exte nded release 24 hr Take 1 tablet every day by oral route at dinner for 90 days. No 1 Q1D metformin ER 500 mg tablet,ext ended release 24 hr Take 1 tablet every day by oral route at dinner for 90 days. [facility] montelukast 10 mg tablet TAKE 1 TABLET BY MOUTH EVERY DAY FOR 30 DAYS montelukast 10 mg tablet TAKE 1 TABLET BY MOUTH EVERY DAY FOR 30 DAYS No montelukas t 10 mg tablet TAKE 1 TABLET BY MOUTH EVERY DAY FOR 30 DAYS [facility] tramadol 50 mg tablet Take 1 tablet every 6 hours by oral route as needed for 7 days. tramadol 50 mg tablet Take 1 tablet every 6 hours by oral route as needed for 7 days. No 1 Q6H tramadol 50 mg tablet Take 1 tablet every 6 hours by oral route as needed for 7 days. [facility] Accu-Chek Softclix Lancets Accu-Chek Softclix Lancets No Accu-Chek Softclix Lancets [facility] azelastine 0.05 % eye drops INSTILL 1 DROP INTO AFFECTED EYE TWICE A DAY azelastine 0.05 % eye drops INSTILL 1 DROP INTO AFFECTED EYE TWICE A DAY No azelastine 0.05 % eye drops INSTILL 1 DROP INTO AFFECTED EYE TWICE A DAY [facility] fenofibrate nanocrystal lized 145 mg tablet Take 1 tablet every day by oral route for 90 days. fenofibrate nanocrystal lized 145 mg tablet Take 1 tablet every day by oral route for 90 days. No fenofibrat e nanocrysta llized 145 mg tablet Take 1 tablet every day by oral route for 90 days. [facility] fluticasone propionate 50 mcg/actuati on nasal spray,suspe nsion SPRAY 1 SPRAY BY INTRANASAL ROUTE EVERY DAY fluticasone propionate 50 mcg/actuati on nasal spray,suspe nsion SPRAY 1 SPRAY BY INTRANASAL ROUTE EVERY DAY No fluticason e propionate 50 mcg/actuat ion nasal spray,susp ension SPRAY 1 SPRAY BY INTRANASAL ROUTE EVERY DAY [facility] hydrochloro thiazide 12.5 mg tablet 1 tablet a day hydrochloro thiazide 12.5 mg tablet 1 tablet a day No hydrochlor othiazide 12.5 mg tablet 1 tablet a day [facility] metformin ER 500 mg tablet,exte nded release 24 hr Take 1 tablet every day by oral route at dinner for 90 days. metformin ER 500 mg tablet,exte nded release 24 hr Take 1 tablet every day by oral route at dinner for 90 days. No 1 Q1D metformin ER 500 mg tablet,ext ended release 24 hr Take 1 tablet every day by oral route at dinner for 90 days. [facility] montelukast 10 mg tablet TAKE 1 TABLET BY MOUTH EVERY DAY FOR 30 DAYS montelukast 10 mg tablet TAKE 1 TABLET BY MOUTH EVERY DAY FOR 30 DAYS No montelukas t 10 mg tablet TAKE 1 TABLET BY MOUTH EVERY DAY FOR 30 DAYS [facility] sumatriptan 50 mg tablet TAKE 1 TABLET EVERY DAY BY ORAL ROUTE NEEDED FOR 9 DAYS. sumatriptan 50 mg tablet TAKE 1 TABLET EVERY DAY BY ORAL ROUTE NEEDED FOR 9 DAYS. No sumatripta n 50 mg tablet TAKE 1 TABLET EVERY DAY BY ORAL ROUTE NEEDED FOR 9 DAYS. [facility] Accu-Chek Softclix Lancets Accu-Chek Softclix Lancets No Accu-Chek Softclix Lancets [facility] azelastine 0.05 % eye drops INSTILL 1 DROP INTO AFFECTED EYE TWICE A DAY azelastine 0.05 % eye drops INSTILL 1 DROP INTO AFFECTED EYE TWICE A DAY No azelastine 0.05 % eye drops INSTILL 1 DROP INTO AFFECTED EYE TWICE A DAY [facility] Farxiga 10 mg tablet Take 1 tablet every day by oral route for 30 days. Farxiga 10 mg tablet Take 1 tablet every day by oral route for 30 days. No Farxiga 10 mg tablet Take 1 tablet every day by oral route for 30 days. [facility] fenofibrate nanocrystal lized 145 mg tablet Take 1 tablet every day by oral route for 90 days. fenofibrate nanocrystal lized 145 mg tablet Take 1 tablet every day by oral route for 90 days. No fenofibrat e nanocrysta llized 145 mg tablet Take 1 tablet every day by oral route for 90 days. [facility] fluticasone propionate 50 mcg/actuati on nasal spray,suspe nsion SPRAY 1 SPRAY BY INTRANASAL ROUTE EVERY DAY fluticasone propionate 50 mcg/actuati on nasal spray,suspe nsion SPRAY 1 SPRAY BY INTRANASAL ROUTE EVERY DAY No fluticason e propionate 50 mcg/actuat ion nasal spray,susp ension SPRAY 1 SPRAY BY INTRANASAL ROUTE EVERY DAY [facility] hydrochloro thiazide 12.5 mg tablet 1 tablet a day hydrochloro thiazide 12.5 mg tablet 1 tablet a day No hydrochlor othiazide 12.5 mg tablet 1 tablet a day [facility] montelukast 10 mg tablet TAKE 1 TABLET BY MOUTH EVERY DAY FOR 30 DAYS montelukast 10 mg tablet TAKE 1 TABLET BY MOUTH EVERY DAY FOR 30 DAYS No montelukas t 10 mg tablet TAKE 1 TABLET BY MOUTH EVERY DAY FOR 30 DAYS [facility] ondansetron 8 mg disintegrat ing tablet DISSOLVE 1 TABLET BY MOUTH TWICE DAILY NEEDED FOR 5 DAYS ondansetron 8 mg disintegrat ing tablet DISSOLVE 1 TABLET BY MOUTH TWICE DAILY NEEDED FOR 5 DAYS No ondansetro n 8 mg disintegra ting tablet DISSOLVE 1 TABLET BY MOUTH TWICE DAILY NEEDED FOR 5 DAYS [facility] Pataday Once Daily Relief 0.2 % eye drops INSTILL 1 DROP INTO AFFECTED EYE(S) BY OPHTHALMIC ROUTE ONCE DAILY Pataday Once Daily Relief 0.2 % eye drops INSTILL 1 DROP INTO AFFECTED EYE(S) BY OPHTHALMIC ROUTE ONCE DAILY No Pataday Once Daily Relief 0.2 % eye drops INSTILL 1 DROP INTO AFFECTED EYE(S) BY OPHTHALMIC ROUTE ONCE DAILY [facility] Qulipta 60 mg tablet Take 1 tablet every day by oral route for 8 days. Qulipta 60 mg tablet Take 1 tablet every day by oral route for 8 days. No 1 Q1D Qulipta 60 mg tablet Take 1 tablet every day by oral route for 8 days. [facility] sumatriptan 50 mg tablet TAKE 1 TABLET EVERY DAY BY ORAL ROUTE NEEDED FOR 9 DAYS. sumatriptan 50 mg tablet TAKE 1 TABLET EVERY DAY BY ORAL ROUTE NEEDED FOR 9 DAYS. No sumatripta n 50 mg tablet TAKE 1 TABLET EVERY DAY BY ORAL ROUTE NEEDED FOR 9 DAYS. [facility] Ubrelvy 100 mg tablet Take 1 tablet every day by oral route as needed for 30 days. Ubrelvy 100 mg tablet Take 1 tablet every day by oral route as needed for 30 days. No 1 Q1D Ubrelvy 100 mg tablet Take 1 tablet every day by oral route as needed for 30 days. [facility] Xyzal 5 mg tablet Take 1 tablet every day by oral route for 90 days. Xyzal 5 mg tablet Take 1 tablet every day by oral route for 90 days. No 1 Q1D Xyzal 5 mg tablet Take 1 tablet every day by oral route for 90 days. [facility] azelastine 0.05 % eye drops INSTILL 1 DROP INTO AFFECTED EYE(S) BY OPHTHALMIC ROUTE 2 TIMES PER DAY azelastine 0.05 % eye drops INSTILL 1 DROP INTO AFFECTED EYE(S) BY OPHTHALMIC ROUTE 2 TIMES PER DAY No azelastine 0.05 % eye drops INSTILL 1 DROP INTO AFFECTED EYE(S) BY OPHTHALMIC ROUTE 2 TIMES PER DAY [facility] fenofibrate nanocrystal lized 145 mg tablet Take 1 tablet every day by oral route for 90 days. fenofibrate nanocrystal lized 145 mg tablet Take 1 tablet every day by oral route for 90 days. No 1 Q1D fenofibrat e nanocrysta llized 145 mg tablet Take 1 tablet every day by oral route for 90 days. [facility] fluticasone propionate 50 mcg/actuati on nasal spray,suspe nsion [place] 1 spray every day by intranasal route. fluticasone propionate 50 mcg/actuati on nasal spray,suspe nsion [place] 1 spray every day by intranasal route. No 1spray( s) Q1D fluticason e propionate 50 mcg/actuat ion nasal spray,susp ension [place] 1 spray every day by intranasal route. [facility] ibuprofen 800 mg tablet Take 1 tablet 3 times a day by oral route as needed for 14 days. ibuprofen 800 mg tablet Take 1 tablet 3 times a day by oral route as needed for 14 days. No 1 TID ibuprofen 800 mg tablet Take 1 tablet 3 times a day by oral route as needed for 14 days. [facility] losartan 50 mg-hydrochl orothiazide 12.5 mg tablet Take 1 tablet every day by oral route for 30 days. losartan 50 mg-hydrochl orothiazide 12.5 mg tablet Take 1 tablet every day by oral route for 30 days. No 1 Q1D losartan 50 mg-hydroch lorothiazi de 12.5 mg tablet Take 1 tablet every day by oral route for 30 days. [facility] montelukast 10 mg tablet Take 1 tablet every day by oral route for 30 days. montelukast 10 mg tablet Take 1 tablet every day by oral route for 30 days. No 1 Q1D montelukas t 10 mg tablet Take 1 tablet every day by oral route for 30 days. [facility] sumatriptan 50 mg tablet Take 1 tablet every day by oral route as needed for 9 days. sumatriptan 50 mg tablet Take 1 tablet every day by oral route as needed for 9 days. No 1 Q1D sumatripta n 50 mg tablet Take 1 tablet every day by oral route as needed for 9 days. [facility] tizanidine 4 mg tablet Take 1 tablet every 6 hours by oral route as needed for 14 days. tizanidine 4 mg tablet Take 1 tablet every 6 hours by oral route as needed for 14 days. No 1 Q6H tizanidine 4 mg tablet Take 1 tablet every 6 hours by oral route as needed for 14 days. [facility] tramadol 50 mg tablet Take 1 tablet every 6 hours by oral route as needed for 7 days. tramadol 50 mg tablet Take 1 tablet every 6 hours by oral route as needed for 7 days. No 1 Q6H tramadol 50 mg tablet Take 1 tablet every 6 hours by oral route as needed for 7 days. [facility] azelastine 0.05 % eye drops INSTILL 1 DROP INTO AFFECTED EYE TWICE A DAY azelastine 0.05 % eye drops INSTILL 1 DROP INTO AFFECTED EYE TWICE A DAY No azelastine 0.05 % eye drops INSTILL 1 DROP INTO AFFECTED EYE TWICE A DAY [facility] fenofibrate nanocrystal lized 145 mg tablet Take 1 tablet every day by oral route for 90 days. fenofibrate nanocrystal lized 145 mg tablet Take 1 tablet every day by oral route for 90 days. No 1 Q1D fenofibrat e nanocrysta llized 145 mg tablet Take 1 tablet every day by oral route for 90 days. [facility] fluticasone propionate 50 mcg/actuati on nasal spray,suspe nsion SPRAY 1 SPRAY BY INTRANASAL ROUTE EVERY DAY fluticasone propionate 50 mcg/actuati on nasal spray,suspe nsion SPRAY 1 SPRAY BY INTRANASAL ROUTE EVERY DAY No fluticason e propionate 50 mcg/actuat ion nasal spray,susp ension SPRAY 1 SPRAY BY INTRANASAL ROUTE EVERY DAY [facility] hydrochloro thiazide 12.5 mg tablet 1 tablet a day hydrochloro thiazide 12.5 mg tablet 1 tablet a day No hydrochlor othiazide 12.5 mg tablet 1 tablet a day [facility] metformin ER 500 mg tablet,exte nded release 24 hr Take 1 tablet every day by oral route at dinner for 90 days. metformin ER 500 mg tablet,exte nded release 24 hr Take 1 tablet every day by oral route at dinner for 90 days. No 1 Q1D metformin ER 500 mg tablet,ext ended release 24 hr Take 1 tablet every day by oral route at dinner for 90 days. [facility] montelukast 10 mg tablet TAKE 1 TABLET BY MOUTH EVERY DAY FOR 30 DAYS montelukast 10 mg tablet TAKE 1 TABLET BY MOUTH EVERY DAY FOR 30 DAYS No montelukas t 10 mg tablet TAKE 1 TABLET BY MOUTH EVERY DAY FOR 30 DAYS [facility] sumatriptan 50 mg tablet TAKE 1 TABLET EVERY DAY BY ORAL ROUTE NEEDED FOR 9 DAYS. sumatriptan 50 mg tablet TAKE 1 TABLET EVERY DAY BY ORAL ROUTE NEEDED FOR 9 DAYS. No sumatripta n 50 mg tablet TAKE 1 TABLET EVERY DAY BY ORAL ROUTE NEEDED FOR 9 DAYS. [facility] e Immunizations Ordered Immunization Name Filled Immunization Name Date Status Comments Source influenza, unspecified formulation influenza, unspecified formulation 2022-08-25 00:00:00 Completed [facility] influenza, unspecified formulation influenza, unspecified formulation 2022-08-25 00:00:00 Completed [facility] influenza, unspecified formulation influenza, unspecified formulation 2022-08-25 00:00:00 Completed [facility] influenza, unspecified formulation influenza, unspecified formulation 2022-08-25 00:00:00 [facility] COVID-19, mRNA, LNP-S, bivalent booster, PF, 30 mcg/0.3 mL dose (Complexa-BioNTech) COVID-19, mRNA, LNP-S, bivalent booster, PF, 30 mcg/0.3 mL dose (Complexa[employer]) 2021-02-27 00:00:00 Completed [facility] COVID-19, mRNA, LNP-S, bivalent booster, PF, 30 mcg/0.3 mL dose (Pfizer-BioNTech) COVID-19, mRNA, LNP-S, bivalent booster, PF, 30 mcg/0.3 mL dose (Complexa-[employer]NT[employer]) 2021-02-27 00:00:00 Completed [facility] COVID-19, mRNA, LNP-S, bivalent booster, PF, 30 mcg/0.3 mL dose (Complexa-[employer]NTech) COVID-19, mRNA, LNP-S, bivalent booster, PF, 30 mcg/0.3 mL dose (Complexa-BioNT[employer]) 2021-02-27 00:00:00 Completed [facility] COVID-19, mRNA, LNP-S, bivalent booster, PF, 30 mcg/0.3 mL dose (Complexa-BioNTech) COVID-19, mRNA, LNP-S, bivalent booster, PF, 30 mcg/0.3 mL dose (Complexa-BioNTech) 2021-02-27 00:00:00 Completed [facility] COVID-19, mRNA, LNP-S, bivalent booster, PF, 30 mcg/0.3 mL dose (Pfizer-BioNTech) COVID-19, mRNA, LNP-S, bivalent booster, PF, 30 mcg/0.3 mL dose (Pfizer-BioNTech) 2021-02-27 00:00:00 Completed [facility] COVID-19, mRNA, LNP-S, bivalent booster, PF, 30 mcg/0.3 mL dose (Pfizer-BioNTech) COVID-19, mRNA, LNP-S, bivalent booster, PF, 30 mcg/0.3 mL dose (Pfizer-BioNTech) 2021-02-05 00:00:00 Completed [facility] COVID-19, mRNA, LNP-S, bivalent booster, PF, 30 mcg/0.3 mL dose (Pfizer-BioNTech) COVID-19, mRNA, LNP-S, bivalent booster, PF, 30 mcg/0.3 mL dose (Pfizer-BioNTech) 2021-02-05 00:00:00 Completed [facility] COVID-19, mRNA, LNP-S, bivalent booster, PF, 30 mcg/0.3 mL dose (Pfizer-BioNTech) COVID-19, mRNA, LNP-S, bivalent booster, PF, 30 mcg/0.3 mL dose (Pfizer-BioNTech) 2021-02-05 00:00:00 Completed [facility] COVID-19, mRNA, LNP-S, bivalent booster, PF, 30 mcg/0.3 mL dose (Pfizer-BioNTech) COVID-19, mRNA, LNP-S, bivalent booster, PF, 30 mcg/0.3 mL dose (Pfizer-BioNTech) 2021-02-05 00:00:00 Completed [facility] COVID-19, mRNA, LNP-S, bivalent booster, PF, 30 mcg/0.3 mL dose (Pfizer-BioNTech) COVID-19, mRNA, LNP-S, bivalent booster, PF, 30 mcg/0.3 mL dose (Pfizer-BioNTech) 2021-02-05 00:00:00 Completed [facility] influenza, unspecified formulation influenza, unspecified formulation Unknown Completed [facility] COVID-19, mRNA, LNP-S, bivalent booster, PF, 30 mcg/0.3 mL dose (Pfizer-BioNTech) COVID-19, mRNA, LNP-S, bivalent booster, PF, 30 mcg/0.3 mL dose (Complexa-[employer]) Unknown Completed [facility] Influenza, Injectable, Mdck, Preservative Free, Quadrivalent Unknown Completed [facility] - External Influenza Virus Vaccine, Quad, Egg Free Unknown Completed [facility] - External Pneumococcal Vaccine, Conjugate 20 Unknown Completed [facility] - External Tdap- (Boostrix, Adacel) Unknown Completed [facility] - External Influenza, Injectable, Mdck, Preservative Free, Quadrivalent Unknown Completed [facility] - External Influenza Virus Vaccine, Quad, Egg Free Unknown Completed [facility] - External Pneumococcal Vaccine, Conjugate 20 Unknown Completed [facility] - External Tdap- (Boostrix, Adacel) Unknown Completed [facility] - External Influenza, Injectable, Mdck, Preservative Free, Quadrivalent Unknown Completed [facility] - External Influenza Virus Vaccine, Quad, Egg Free Unknown Completed [facility] - External Pneumococcal Vaccine, Conjugate 20 Unknown Completed [facility]- (Boostrix, Adacel) Unknown Completed [facility] - External Influenza, Injectable, Mdck, Preservative Free, Quadrivalent Unknown Completed [facility] - External Influenza Virus Vaccine, Quad, Egg Free Unknown Completed [facility] - External Pneumococcal Vaccine, Conjugate 20 Unknown Completed [facility] - External Tdap- (Boostrix, Adacel) Unknown Completed [facility] - External Influenza, Injectable, Mdck, Preservative Free, Quadrivalent Unknown Completed [facility] - External Influenza Virus Vaccine, Quad, Egg Free Unknown Completed [facility] - External Pneumococcal Vaccine, Conjugate 20 Unknown Completed [facility] - External Tdap- (Boostrix, Adacel) Unknown Completed [facility] - External Influenza, Injectable, Mdck, Preservative Free, Quadrivalent Unknown Completed [facility] - External Influenza Virus Vaccine, Quad, Egg Free Unknown Completed [facility] - External Pneumococcal Vaccine, Conjugate 20 Unknown Completed [facility] - External Tdap- (Boostrix, Adacel) Unknown Completed [facility] - External AFLURIA TRIVALENT PF(0.5mL) Unknown Completed [facility] - External Shingles IM (Shingrix) Unknown Completed [facility] - External Influenza, Injectable, Mdck, Preservative Free, Quadrivalent Unknown Completed [facility] - External Influenza Virus Vaccine, Quad, Egg Free Unknown Completed [facility] - External Pneumococcal Vaccine, Conjugate 20 Unknown Completed [facility] Chaudhryybold - External Tdap- (Boostrix, Adacel) Unknown Completed [facility] - External AFLURIA TRIVALENT PF(0.5mL) Unknown Completed [facility] - External Shingles IM (Shingrix) Unknown Completed [facility] - External Influenza, Injectable, Mdck, Preservative Free, Quadrivalent Unknown Completed [facility] - External Influenza Virus Vaccine, Quad, Egg Free Unknown Completed [facility] - External Pneumococcal Vaccine, Conjugate 20 Unknown Completed [facility] - External Tdap- (Boostrix, Adacel) Unknown Completed [facility] Chaudhryybold - External AFLURIA TRIVALENT PF(0.5mL) Unknown Completed [facility] - External Shingles IM (Shingrix) Unknown Completed [facility] - External Influenza, Injectable, Mdck, Preservative Free, Quadrivalent Unknown Completed [facility] - External Influenza Virus Vaccine, Quad, Egg Free Unknown Completed [facility] - External Influenza, Injectable, Mdck, Preservative Free, Quadrivalent Unknown Completed [facility] - External Influenza Virus Vaccine, Quad, Egg Free Unknown Completed [facility] Chaudhryybold - External Vital Signs Vital Name Observation Time Observation Value Comments S ource Systolic blood pressure 2024-12-22 20:20:00 132 mm[Hg] Marita Coboso ld - External Diastolic blood pressure 2024-12-22 20:20:00 84 mm[Hg] Marita Coboso ld - External Heart rate 2024-12-22 20:20:00 78 /min Hafsa Altman - External Body temperature 2024-12-22 20:20:00 36.33 Traci Marita ybold - External Respiratory rate 2024-12-22 20:20:00 16 /min Marita juliette - External Body height 2024-12-22 20:20:00 160 cm Yuko hernandez [facility] - External Body weight 2024-12-22 20:20:00 84.913 kg Yuko ey [facility] - External BMI 2024-12-22 20:20:00 33.16 kg/m2 Yuko ey [facility] - External Systolic blood pressure 2024-11-03 19:45:00 140 mm[Hg] Marita Seybo ld - External Diastolic blood pressure 2024-11-03 19:45:00 82 mm[Hg] Marita Seybo ld - External Heart rate 2024-11-03 19:45:00 78 /min Kelse y [facility] - External Respiratory rate 2024-11-03 19:45:00 16 /min Marita [facility] - External Systolic blood pressure 2024-09-28 16:12:00 132 mm[Hg] Marita Seybo ld - External Diastolic blood pressure 2024-09-28 16:12:00 80 mm[Hg] Marita Seybo ld - External Heart rate 2024-09-28 16:12:00 76 /min Calse y [facility] - External Body temperature 2024-09-28 16:12:00 36.78 Traci Marita [facility] - External Respiratory rate 2024-09-28 16:12:00 18 /min Marita [facility] - External Body height 2024-09-28 16:12:00 160 cm Yuko ey [facility] - External Body weight 2024-09-28 16:12:00 87.714 kg Yuko ey [facility] - External BMI 2024-09-28 16:12:00 34.25 kg/m2 Yuko ey [facility] - External Oxygen saturation in Arterial blood by Pulse oximetry 2024-09-28 16:12:00 99 /min Marita Seybo ld - External Body height 2024-07-01 16:48:00 160 cm Yuko ey [facility] - External Body weight 2024-07-01 16:48:00 85.276 kg Yuko ey Seybold - External BMI 2024-07-01 16:48:00 33.30 kg/m2 Yuko ey Seybold - External Systolic blood pressure 2024-06-10 16:45:00 158 mm[Hg] Marita Seybo ld - External Diastolic blood pressure 2024-06-10 16:45:00 90 mm[Hg] Marita Seybo ld - External Heart rate 2024-06-10 16:07:00 85 /min Kelse y Seybold - External Body temperature 2024-06-10 16:07:00 37 Traci Marita Seybold - External Respiratory rate 2024-06-10 16:07:00 16 /min Marita Seybold - External Body height 2024-06-10 16:07:00 160 cm Yuko ey Seybold - External Oxygen saturation in Arterial blood by Pulse oximetry 2024-06-10 16:07:00 97 /min Marita Seybo ld - External Systolic blood pressure 2024-02-16 15:36:00 154 mm[Hg] Marita Seybo ld - External Diastolic blood pressure 2024-02-16 15:36:00 92 mm[Hg] Marita Seybo ld - External Heart rate 2024-02-16 14:50:00 85 /min Kelse y Seybold - External Body temperature 2024-02-16 14:50:00 37 Traci Marita Seybold - External Respiratory rate 2024-02-16 14:50:00 15 /min Marita Seybold - External Body height 2024-02-16 14:50:00 160 cm Yuko ey Seybold - External Body weight 2024-02-16 14:50:00 85.276 kg Yuko ey Seybold - External BMI 2024-02-16 14:50:00 33.30 kg/m2 Yuko ey Seybold - External Body height 2024-01-26 19:00:00 160 cm Yuko ey Seybold - External Body weight 2024-01-26 19:00:00 87.091 kg Yuko ey Seybold - External BMI 2024-01-26 19:00:00 34.01 kg/m2 Yuko ey Seybold - External Systolic blood pressure 2023-12-30 16:25:00 136 mm[Hg] Marita Seybo ld - External Diastolic blood pressure 2023-12-30 16:25:00 84 mm[Hg] Marita Seybo ld - External Heart rate 2023-12-30 16:25:00 72 /min Kelse y Seybold - External Body temperature 2023-12-30 16:25:00 36.56 Traci Marita Seybold - External Respiratory rate 2023-12-30 16:25:00 15 /min Marita Altman - External Body height 2023-12-30 16:25:00 160 cm Yuko Cobosold - External Body weight 2023-12-30 16:25:00 87.544 kg Yuko Cobosold - External BMI 2023-12-30 16:25:00 34.19 kg/m2 Yuko ey Seybold - External Oxygen saturation in Arterial blood by Pulse oximetry 2023-12-30 16:25:00 95 /min Marita Álvarez ld - External BP Systolic 2023-07-04 00:00:00 153 mm[Hg] [facility] Height 2023-07-04 00:00:00 63 [in_i] [facility] BP Diastolic 2023-07-04 00:00:00 100 mm[Hg] [facility] Body Weight 2023-07-04 00:00:00 192.8 [lb_av] [facility] BMI (Body Mass Index) 2023-07-04 00:00:00 34.2 kg/m2 [facility] Systolic blood pressure 2023-07-03 03:00:00 166 mm[Hg] [facility] Diastolic blood pressure 2023-07-03 03:00:00 89 mm[Hg] [facility] Heart rate 2023-07-03 03:00:00 69 /min [facility] Respiratory rate 2023-07-03 03:00:00 15 /min [facility] Oxygen saturation in Arterial blood by Pulse oximetry 2023-07-03 03:00:00 100 /min [facility] Body temperature 2023-07-03 00:33:00 37.11 Traci [facility] Body height 2023-07-03 00:33:00 160 cm [facility] Body weight 2023-07-03 00:33:00 84.823 kg [facility] BMI 2023-07-03 00:33:00 33.13 kg/m2 [facility] BP Diastolic 2023-02-03 00:00:00 76 mm[Hg] Savita [facility] Height 2023-02-03 00:00:00 63 [in_i] [facility] BMI (Body Mass Index) 2023-02-03 00:00:00 33.2 kg/m2 [facility] Practice BP Systolic 2023-02-03 00:00:00 134 mm[Hg] [facility] Body Weight 2023-02-03 00:00:00 187.6 [lb_av] [facility] BP Diastolic 2023-01-21 00:00:00 77 mm[Hg] [facility] Height 2023-01-21 00:00:00 63 [in_i] [facility] BMI (Body Mass Index) 2023-01-21 00:00:00 34.2 kg/m2 [facility] BP Systolic 2023-01-21 00:00:00 116 mm[Hg] [facility] Body Weight 2023-01-21 00:00:00 193 [lb_av] [facility] BP Diastolic 2023-01-14 00:00:00 86 mm[Hg] [facility] Height 2023-01-14 00:00:00 63 [in_i] [facility] BMI (Body Mass Index) 2023-01-14 00:00:00 34.3 kg/m2 [facility] Practice BP Systolic 2023-01-14 00:00:00 134 mm[Hg] [facility] Body Weight 2023-01-14 00:00:00 193.8 [lb_av] [facility] BP Diastolic 2023-01-03 00:00:00 84 mm[Hg] [facility] Height 2023-01-03 00:00:00 63 [in_i] [facility] BMI (Body Mass Index) 2023-01-03 00:00:00 35.1 kg/m2 [facility] Practice BP Systolic 2023-01-03 00:00:00 140 mm[Hg] [facility] Body Weight 2023-01-03 00:00:00 198.2 [lb_av] [facility] BP Diastolic 2022-12-17 00:00:00 105 mm[Hg] [facility] Height 2022-12-17 00:00:00 63 [in_i] [facility] BMI (Body Mass Index) 2022-12-17 00:00:00 34.7 kg/m2 [facility] BP Systolic 2022-12-17 00:00:00 100 mm[Hg] [facility] Body Weight 2022-12-17 00:00:00 196 [lb_av] [facility] Temperature Oral (F) 2019-03-18 11:40:00 98.5 F [facility] Heart Rate 2019-03-18 11:40:00 [facility] Respitory Rate 2019-03-18 11:40:00 [facility] Systolic (mm Hg) 2019-03-18 11:40:00 [facility] Diastolic (mm Hg) 2019-03-18 11:40:00 [facility] Heart Rate 2019-03-18 10:30:00 [facility] Respitory Rate 2019-03-18 10:30:00 [facility] Systolic (mm Hg) 2019-03-18 10:30:00 [facility] Diastolic (mm Hg) 2019-03-18 10:30:00 [facility] Temperature Oral (F) 2019-03-18 10:30:00 98.5 F [facility] Systolic (mm Hg) 2019-03-18 08:38:00 [facility] Diastolic (mm Hg) 2019-03-18 08:38:00 [facility] Weight 2019-03-18 08:38:00 [facility] Height 2019-03-18 08:38:00 160.02 cm [facility] BMI Calculated 2019-03-18 08:38:00 [facility] Heart Rate 2019-03-18 08:38:00 [facility] [place] Respitory Rate 2019-03-18 08:38:00 [facility] Temperature Oral (F) 2019-03-18 08:38:00 98.3 F [facility] Heart Rate 2018-04-08 10:45:00 [facility] Respitory Rate 2018-04-08 10:45:00 [facility] Systolic (mm Hg) 2018-04-08 10:45:00 [facility] Diastolic (mm Hg) 2018-04-08 10:45:00 [facility] Temperature Oral (F) 2018-04-08 10:45:00 98.4 F [facility] Heart Rate 2018-04-08 09:00:00 [facility] Respitory Rate 2018-04-08 09:00:00 [facility] Systolic (mm Hg) 2018-04-08 09:00:00 [facility] Diastolic (mm Hg) 2018-04-08 09:00:00 [facility] Diastolic (mm Hg) 2018-04-08 07:40:00 [facility] Systolic (mm Hg) 2018-04-08 07:40:00 [facility] Heart Rate 2018-04-08 07:40:00 [facility] Respitory Rate 2018-04-08 07:40:00 [facility] Temperature Oral (F) 2018-04-08 07:40:00 98.2 F [facility] Weight 2018-04-08 05:59:00 [facility] BMI Calculated 2018-04-08 05:59:00 [facility] Height 2018-04-08 05:59:00 160.02 cm [facility] Temperature Oral (F) 2018-04-08 05:59:00 98 F [facility] Systolic (mm Hg) 2015-05-13 07:17:00 [facility] Diastolic (mm Hg) 2015-05-13 07:17:00 [facility] Heart Rate 2015-05-13 07:17:00 [facility] [place] Respitory Rate 2015-05-13 07:17:00 [facility] Temperature Oral (F) 2015-05-13 07:17:00 98 F [facility] BMI Calculated 2015-05-13 03:27:00 [facility] Weight 2015-05-13 03:27:00 [facility] Temperature Oral (F) 2015-05-13 03:27:00 98.2 F [facility] Height 2015-05-13 03:27:00 160.02 cm [facility] Systolic (mm Hg) 2015-05-13 03:27:00 [facility] Diastolic (mm Hg) 2015-05-13 03:27:00 [facility] Respitory Rate 2015-05-13 03:27:00 [facility] Heart Rate 2015-05-13 03:27:00 [facility] Procedures Procedure Date / Time Performed Performing Clinician Source POCT GLUCOSE(AGE >30DAYS) 2023-07-03 03:00:00 Jenny Garrett [facility] POCT GLUCOSE (AUTOMATED) 2023-07-03 02:57:00 Jenny Garrett [facility] MAGNESIUM 2023-07-03 01:26:00 Jenny Garrett [facility] TROPONIN I 2023-07-03 01:26:00 Jenny Garrett [facility] COMP. METABOLIC PANEL (98824) 2023-07-03 01:26:00 Jenny Garrett [facility] CBC WITH DIFF 2023-07-03 01:26:00 Jenny Garrett [facility] N-TERMINAL PRO-BNP 2023-07-03 01:26:00 Jenny Garrett [facility] URINALYSIS 2023-07-03 00:48:00 Jenny Garrett [facility] POCT GLUCOSE(AGE >30DAYS) 2023-07-03 00:45:00 Jenny Garrett [facility] POCT GLUCOSE (AUTOMATED) 2023-07-03 00:44:00 Jenny Garrett [facility] NOTICE OF PRIVACY PRACTICES 2023-07-03 00:17:29 Doctor Unassigned, [facility] CONSENT/REFUSAL FOR DIAGNOSIS AND TREATMENT 2023-07-03 00:16:48 Doctor Unassigned, [facility] electrocardiogram 2022-12-17 00:00:00 Savita caldwell [facility] Hysterectomy (Partial) 2011-09-25 00:00:00 [facility] Section 1995-11-24 00:00:00 [facility] Plan of Care Planned Activity Planned Date Details Comments Source Diagnostic Test Pending 2023-07-04 00:00:00 hemoglobin A1C, fingerstick [code = hemoglobin A1C, fingerstick] [facility] Diagnostic Test Pending 2023-07-04 00:00:00 microalbumin/creatin ine, mass ratio, urine [code = microalbumin/creatin ine, mass ratio, urine] [facility] Diagnostic Test Pending 2023-07-04 00:00:00 lipid panel, serum [code = lipid panel, serum] [facility] Instructions [facility] Practice Encounters Start Date/Time End Date/Time Encounter Type Admission Type Attending [facility] Care Facility Care Department Encounter ID Source 2025-02-09 14:45:00 2025-02-09 14:45:00 Outpatient HEMANTH BLOUNT [id number] [facility] 2025-02-02 10:00:00 2025-02-02 10:00:00 Outpatient ÓSCARMAKEDA TK MORALES [id number] [facility] 2024-12-29 00:00:00 2024-12-29 00:00:00 Outpatient TK RUBALCAVA [id number] [facility] 2024-12-28 00:00:00 2024-12-28 00:00:00 Outpatient TK RUBALCAVA [id number] [facility] 2024-12-27 09:00:00 2024-12-27 09:00:00 [facility] [id number] [facility]24-12-27 00:00:00 2024-12-27 00:00:00 Outpatient RICHIEJony TK MORALES [id number] [facility] 2024-12-22 16:30:00 2024-12-22 16:30:00 Outpatient MALLY MORALES [id number] [facility] 2024-12-22 15:45:00 2024-12-22 15:45:00 Outpatient ÓSCARMAKEDATK [id number] [facility] 2024-12-21 00:00:00 2024-12-21 00:00:00 Outpatient HEMANTH BLOUNT [id number] [facility] 2024-12-02 00:00:00 2024-12-02 00:00:00 Outpatient RALPH PARADA [id number] [facility] 2024-12-02 00:00:00 2024-12-02 00:00:00 Outpatient RALPH PARADA [id number] [facility] 2024-11-30 12:05:00 2024-11-30 12:05:00 Outpatient [facility] MARITA MARITA [id number] Marita Chaudhryybold 2024-11-30 00:00:00 2024-11-30 00:00:00 Outpatient [facility] MARITA MARITA [id number] Marita ybold 2024-11-29 11:20:00 2024-11-29 11:20:00 Outpatient MARITA MARITA [id number] Marita Seybold 2024-11-29 10:30:00 2024-11-29 10:30:00 Outpatient MARITA MARITA [id number] Marita Seybold 2024-11-29 09:40:00 2024-11-29 09:40:00 Outpatient JAYY ZULAY MARITA MORALES [id number] Marita Seybold 2024-11-23 14:20:00 2024-11-23 14:20:00 Outpatient [id number] MARITA MORALES [id number] Marita Seybold 2024-11-23 00:00:00 2024-11-23 00:00:00 Outpatient PARADA, RALPH MARITA MORALES [id number] Mraita Seybold 2024-11-23 00:00:00 2024-11-23 00:00:00 Outpatient DO, JODI MORALES [id number] Marita Seybold 2024-11-23 00:00:00 2024-11-23 00:00:00 Outpatient PARADA, RALPH MORALSE [id number] Marita Seybold 2024-11-23 00:00:00 2024-11-23 00:00:00 Outpatient PARADA, RALPH MARITA MORALES [id number] Marita Seybold 2024-11-23 00:00:00 2024-11-23 00:00:00 Outpatient PARADA, RALPH MORALES [id number] Marita Seybold 2024-11-22 11:00:00 2024-11-22 11:00:00 Outpatient MARITA MORALES [id number] Marita Seybold 2024-11-22 00:00:00 2024-11-22 00:00:00 Outpatient MYMD MARITA MITCHELL [id number] [facility] 2024-11-18 00:00:00 2024-11-18 00:00:00 Outpatient DO, JODI MARITA MORALES [id number] Marita Seybold 2024-11-09 00:00:00 2024-11-09 00:00:00 Outpatient [facility], [facility] MARITA MORALES [id number] Marita Seybold 2024-11-08 09:35:00 2024-11-08 09:35:00 Outpatient [facility], [facility] MARITA MORALES [id number] [facility] 2024-11-05 15:30:00 2024-11-05 15:30:00 Outpatient MARITA MORALES [id number] Marita Seybold 2024-11-05 14:25:00 2024-11-05 14:25:00 Outpatient MARITA MORALES [id number] [facility] 2024-11-05 14:20:00 2024-11-05 14:20:00 Outpatient MARITA MORALES [id number] [facility] 2024-11-05 14:20:00 2024-11-05 14:20:00 Outpatient MARITA MORALES [id number] Marita Seybold 2024-11-05 14:15:00 2024-11-05 14:15:00 Outpatient MARITA MORALES [id number] [facility] 2024-11-05 00:00:00 2024-11-05 00:00:00 Outpatient DASHAWN CHAMPAGNE [id number] Marita Seybold 2024-11-05 00:00:00 2024-11-05 00:00:00 Outpatient DASHAWN CHAMPAGNE [id number] Marita Seybold 2024-11-05 00:00:00 2024-11-05 00:00:00 Outpatient MARITA MORALES [id number] Marita Seybold 2024-11-05 00:00:00 2024-11-05 00:00:00 Outpatient DASHAWN CHAMPAGNE [id number] Marita Seybold 2024-11-05 00:00:00 2024-11-05 00:00:00 Outpatient DASHAWN CHAMPAGNE [id number] Marita ybariana 2024-11-03 15:00:00 2024-11-03 15:00:00 Outpatient JORYEMELYNHEMANTH Nova MARITA MORALES [id number] Marita Seybariana 2024-10-21 00:00:00 2024-10-21 00:00:00 Outpatient RALPH PARADA [id number] Marita Seybariana 2024-10-21 00:00:00 2024-10-21 00:00:00 Outpatient RALPH PARADA [id number] Marita Seybariana 2024-10-18 00:00:00 2024-10-18 00:00:00 Outpatient MARITA MORALES [id number] Marita Seybariana 2024-10-18 00:00:00 2024-10-18 00:00:00 Outpatient DASHAWN CHAMPAGNE [id number] Marita Seybariana 2024-10-18 00:00:00 2024-10-18 00:00:00 Outpatient [facility] MARITA MORALES [id number] Marita Seybariana 2024-10-11 15:20:00 2024-10-11 15:20:00 Outpatient MARITA MORALES [id number] Marita ybariana 2024-10-08 00:00:00 2024-10-08 00:00:00 Outpatient MD MARITA HERNANDEZ [id number] Marita Sey[facility]iana 2024-10-06 00:00:00 2024-10-06 00:00:00 Outpatient AGUSTINA KRISNHAMURTHY [id number] Marita Sey[facility]iana 2024-10-01 12:00:00 2024-10-01 12:00:00 Outpatient CHAITANYA POLLOCK [id number] Marita Seybariana 2024-10-01 09:30:00 2024-10-01 09:30:00 Outpatient RALPH PARADA [id number] Marita Seybold 2024-09-28 10:45:00 2024-09-28 10:45:00 Outpatient [id number] MARITA MORALES [id number] Marita Seybold 2024-09-28 10:00:00 2024-09-28 10:00:00 Outpatient RALPH PARADA AMRITA MORALES [id number] Marita Seybold 2024-09-28 00:00:00 2024-09-28 00:00:00 Outpatient KARMA RALPH MARITA MORALES [id number] Marita Seybold 2024-09-22 00:00:00 2024-09-22 00:00:00 Outpatient MD MARITA HERNANDEZ [id number] [facility] 2024-09-20 00:00:00 2024-09-20 00:00:00 Outpatient DO, JODI MORALES [id number] [facility] 2024-09-17 00:00:00 2024-09-17 00:00:00 Outpatient MD MARITA HERNANDEZ [id number] [facility] 2024-09-15 14:00:00 2024-09-15 14:00:00 Outpatient HEMANTH BLOUNT [id number] [facility] 2024-09-14 15:30:00 2024-09-14 15:30:00 Outpatient DO, JODI MORALES [id number] Marita Seybold 2024-09-14 15:00:00 2024-09-14 15:00:00 Outpatient DO, JODI MORALES [id number] Marita Seybold 2024-09-13 00:00:00 2024-09-13 00:00:00 Outpatient DO, JODI MORALES [id number] Marita Seybold 2024-09-07 00:00:00 2024-09-07 00:00:00 Outpatient DO, JODI MORALES [id number] Marita Seybold 2024-09-07 00:00:00 2024-09-07 00:00:00 Outpatient DO, JODI MORALES [id number] Marita Seybold 2024-09-07 00:00:00 2024-09-07 00:00:[address] [id number] Marita Seybold 2024-08-19 12:00:2024-08-19 12:00:00 Outpatient MARITA MORALES [id number] Marita [facility] 2024-08-16 00:00:00 2024-08-16 00:00:00 Outpatient MD MARITA HERNANDEZ [id number] Marita [facility] 2024-08-15 00:00:00 2024-08-15 00:00:00 Outpatient DO, JODI MORALES [id number] Marita [facility] 2024-07-15 11:15:00 2024-07-15 11:15:00 Outpatient DO, JODI MORALES [id number] Marita Sey[facility]iana 2024-07-15 00:00:00 2024-07-15 00:00:00 Outpatient MD MARITA HERNANDEZ [id number] Marita Sey[facility]iana 2024-07-07 11:00:00 2024-07-07 11:00:00 Outpatient HEMANTH BLOUNT [id number] [facility] 2024-07-01 10:30:00 2024-07-01 10:30:00 Outpatient AGUSITNA KRISHNAMURTHY [id number] [facility] 2024-06-21 00:00:00 2024-06-21 00:00:00 Outpatient AGUSTINA KRISHNAMURTHY [id number] [facility] 2024-06-21 00:00:00 2024-06-21 00:00:00 Outpatient MD MARITA HERNANDEZ [id number] [facility] 2024-06-19 00:00:00 2024-06-19 00:00:[address] [id number] Marita Seybold 2024-06-10 13:00:00 2024-06-10 13:00:00 Outpatient RIVERA MELVIN [id number] Marita Seybold 2024-06-10 10:45:00 2024-06-10 10:45:00 Outpatient , JODI MORALES [id number] Marita Seybold 2024-05-21 00:00:00 2024-05-21 00:00:[address] MARITA MORALES [id number] [facility] 2024-04-25 00:00:00 2024-04-25 00:00:00 Outpatient IHSAN DASHAWN MORALES [id number] [facility] 2024-04-22 00:00:00 2024-04-22 00:00:00 Outpatient RAGHUAGUSTINA SANCHEZ [id number] [facility] 2024-04-22 00:00:00 2024-04-22 00:00:00 Outpatient RAGHU, AGUSTINA MORALES [id number] [facility] 2024-04-12 00:00:00 2024-04-12 00:00:00 Outpatient DASHAWN CHAMPAGNE [id number] [facility] 2024-03-30 13:00:00 2024-03-30 13:00:00 Outpatient EMELY BLANKENSHIP [id number] [facility] 2024-03-29 11:00:00 2024-03-29 11:00:00 Outpatient IHSAN DASHAWN MORALES [id number] [facility] 2024-03-09 15:00:00 2024-03-09 15:00:00 Outpatient MARITA MORALES [id number] [facility] 2024-03-01 13:20:00 2024-03-01 13:20:00 Outpatient ROB ROLDAN [id number] [facility] 2024-02-19 10:45:00 2024-02-19 10:45:00 Outpatient TK RUBALCAVA [id number] [facility] 2024-02-18 13:00:00 2024-02-18 13:00:00 Out[facility] [id number] [facility]-16 10:00:00 2024-02-16 10:00:00 Outpatient DASHAWN CHAMPAGNE [id number] [facility] 2024-01-26 14:00:00 2024-01-26 14:00:00 Outpatient AGUSTINA KRISHNAMURTHY [id number] [facility] 2024-01-23 13:05:00 2024-01-23 13:05:00 Outpatient MARITA [facility] [id number] [facility]20 00:00:00 2024-01-20 00:00:00 Outpatient TK RUBALCAVA MARITA MORALES [id number] [facility] 2024-01-06 00:00:00 2024-01-06 00:00:[address] MARITA MORALES [id number] [facility] 2024-01-01 00:00:00 2024-01-01 00:00:[address] [id number] [facility] 2023-12-30 13:00:00 2023-12-30 13:00:00 Outpatient LAB90 MARITA MORALES [id number] [facility] 2023-12-30 11:15:00 2023-12-30 11:15:[address] MARITA MORALES [id number] [facility] 2023-07-17 00:00:00 2023-07-17 00:00:00 Outpatient Hernandez_M _HOU_NP VFP VFP [id number] [facility] 2023-07-04 00:00:00 2023-07-04 00:00:00 Outpatient Hernandez_M _HOU_NP VFP VFP [id number] [facility] 2023-07-04 00:00:00 2023-07-04 00:00:00 Outpatient Hernandez_M _HOU_NP VFP VFP [id number] [facility] 2023-07-04 00:00:00 2023-07-04 00:00:00 Outpatient Hernandez_M _HOU_NP VFP VFP [id number] [facility] 2023-07-04 00:00:00 2023-07-04 00:00:00 Clay David, BOX CAR LOADER: [address], [address], [place] [address] , Ph. VFP [place] [facility] [place] [id number] [facility] 2023-07-02 18:35:00 2023-07-02 21:08:00 Emergency X Jenny GARRETT [facility] ERT [id number] [facility] 2023-07-02 18:35:00 2023-07-02 21:08:00 Emergency Jenny Garrett Altagracia [facility] [id number] [facility] 2023-04-15 00:00:00 2023-04-15 00:00:00 Outpatient Hernandez_M _HOU_NP VFP VFP [id number] [facility] 2023-04-15 00:00:00 2023-04-15 00:00:00 Outpatient Hernandez_M _HOU_NP VFP VFP [id number] [facility] 2023-02-04 00:00:00 2023-02-04 00:00:00 Outpatient DeMattia_J VFP VFP [id number] [facility] 2023-02-03 00:00:00 2023-02-03 00:00:00 Outpatient Hernandez_M VFP VFP [id number] [facility] 2023-02-03 00:00:00 2023-02-03 00:00:00 Denzel Green MD: [id number], [address], [place] [address] , Ph. VFP [place] - [facility] [place] - VM_[facility] [id number] [facility] 2023-01-21 00:00:00 2023-01-21 00:00:00 Outpatient Hernandez_M VFP VFP [id number] [facility] 2023-01-21 00:00:00 2023-01-21 00:00:00 Outpatient Hernandez_M VFP VFP [id number] [facility] 2023-01-21 00:00:00 2023-01-21 00:00:00 Clay David, BOX CAR LOADER: [address], [address], [place] [address] , Ph. VFP [facility] - [place] [id number] [facility] 2023-01-14 00:00:00 2023-01-14 00:00:00 Outpatient Hernandez_M VFP VFP [id number] [facility] 2023-01-14 00:00:00 2023-01-14 00:00:00 Denzel Green MD: [id number], [address], [place] [address] , Ph. VFP [facility] - [place] - [facility] [id number] [facility] 2023-01-03 00:00:00 2023-01-03 00:00:00 Outpatient Hernandez_M VFP VFP [id number] [facility] 2023-01-03 00:00:00 2023-01-03 00:00:00 Outpatient Hernandez_M VFP VFP [id number] [facility] 2023-01-03 00:00:00 2023-01-03 00:00:00 Clay David, BOX CAR LOADER: [address], [address], [place] [address] , Ph. VFP [facility] [place] [facility] [id number] [facility] 2023-01-01 00:00:00 2023-01-01 00:00:00 Outpatient Hernandez_M VFP VFP [id number] [facility] 2022-12-31 00:00:00 2022-12-31 00:00:00 Outpatient Hernandez_M VFP VFP [id number] [facility] 2022-12-24 00:00:00 2022-12-24 00:00:00 Outpatient Hernandez_M VFP VFP [id number] [facility] 2022-12-18 00:00:00 2022-12-18 00:00:00 Outpatient Hernandez_M VFP VFP [id number] [facility] 2022-12-17 00:00:00 2022-12-17 00:00:00 Outpatient Hernandez_M VFP VFP [id number] [facility] 2022-12-17 00:00:00 2022-12-17 00:00:00 Clay David, BOX CAR LOADER: [address], [address], [place] [address] , Ph. VFP [place] - [facility] [place] [facility] [id number] [facility] 2022-12-10 00:00:00 2022-12-10 00:00:00 Outpatient Hernandez_M VFP VFP [id number] [facility] 2022-12-10 00:00:00 2022-12-10 00:00:00 Outpatient Hernandez_M VFP VFP [id number] [facility] 2020-08-16 12:00:00 2020-08-16 12:00:00 Outpatient [facility]ENCE [facility] [id number] [facility] 2019-03-18 08:32:30 2019-03-18 11:55:00 Emergency nullFlavo r [facility] [id number] 04 Julia Dan 2019-03-18 03:32:00 2019-03-18 03:32:00 Emergency E [facility] [id number] 2018-04-08 05:31:00 2018-04-08 11:20:00 Emergency nullFlavo r [facility] [id number] Julia Dan 2015-05-13 03:11:00 2015-05-13 07:19:00 [facility] nullFlavo [facility] [id number] Julia Dan Results Test Description Test Time Test Comments Results Result Co mments Source [facility]2023-07-03 03:01:55* Test Item Value Reference Range Interpretation Comme nts POCT GLU (test code = 4568060438) 110 mg/dL 70-110 Lab Interpretation (test cod e = 44893-4) [facility] >30DAYS[facility]2023-07-03 03:00:00* Test Item Value Reference Range Interpretation Comme nts POCT Glu (age>30days) (test code = 3342) 110 mg/dL 70-110 Lab Interpretation (test cod e = 21737-9) [facility] [id number] 02:17:43* Test Item Value Reference Range Interpretation Comme nts TROPONIN I (test code = 0986076228) 0.000 ng/mL <=0.034 MIO (test code = MIO) Reference (Normal) Range (defined by the 99th percentile reference limit): <= 0.034 ng/mL Note: Cardiac troponin begins to rise 3-4 hours after the onset of ischemia. Repeat in 4-6 hours if the sample was drawn within 3-4 hours of the onset of the symptom and found normal. Diagnosis of myocardial injury is made with acute changes in cTn concentrations with at least one serial sample above the 99th percentile upper reference limit (URL), taken together with the patient's clinical presentation. Biotin has been reported to cause a negative bias, interpret results relative to patient's use of biotin. Lab Interpretation (test code = 60673-4) Normal [facility] NEY-[id number] 02:15:01* Test Item Value Reference Range Interpretation Comme nts NT-proBNP (test code = 85151-0) 44 pg/mL <=125 Lab Interpretation (test cod e = 94849-8) [facility]2023-11-09 02:06:40* Test Item Value Reference Range Interpretation Comme nts MAGNESIUM (test code = 8838405296) 2.0 mg/dL 1.7-2.4 Lab Interpretation (test cod e = 59419-9) Normal [facility]OL[facility] PANEL (10830)2023-07-03 02:06:20* Test Item Value Reference Range Interpretation Comme nts NA (test code = 3858048352) 137 mmol/L 135-145 K (test code = 9503400001) 3.7 mmol/L 3.5-5.0 CL (test code = 2256279494) 103 mmol/L 98-108 CO2 TOTAL (test code = 2694828083) 26 mmol/L 23-31 AGAP (test code = 3435171997) 8 2-16 BUN (test code = 1183440993) 12 mg/dL 7-23 GLUCOSE (test code = 5269876368) 136 mg/dL 70-110 H CREATININE (test code = 0549814585) 0.70 mg/dL 0.50-1.04 TOTAL BILI (test code = 8926350952) 0.3 mg/dL 0.1-1.1 CALCIUM (test code = 3734239040) 9.2 mg/dL 8.6-10.6 T PROTEIN (test code = 5267784609) 7.9 g/dL 6.3-8.2 ALBUMIN (test code = 3893528387) 4.0 g/dL 3.5-5.0 ALK PHOS (test code = 1283177203) 75 U/L 34-122 ALTv (test code = 1742-6) 25 U/L 5-35 AST(SGOT) (test code = 5614192994) 29 U/L 13-40 eGFR (test code = 98559-5) 104.2 mL/min/1.73m2 CKD-EPI eGFR (2020). Assuming creatinine has been stable day-to-day for at least three months, the eGFR indicates Category G1 (>= 90 mL/min/1.73 m2) Lab Interpretation (test code = 58069-7) Abnormal [facility] WITH [id number] 01:51:40* Test Item Value Reference Range Interpretation Comme nts WBC (test code = 6690-2) 6.26 See_Comment [Automated [employer] The system which generated this result transmitted reference range: 4.30 - 11.10 10*3/?L. The reference range was not used to interpret this result as normal/abnormal. RBC (test code = 789-8) 4.52 See_Comment [Automated [employer] The system which generated this result transmitted reference range: 3.93 - 5.25 10*6/?L. The reference range was not used to interpret this result as normal/abnormal. HGB (test code = 718-7) 11.3 g/dL 11.6-15.0 L HCT (test code = 4544-3) 35.9 % 35.7-45.2 MCV (test code = 787-2) 79.4 fL 80.6-95.5 L MCH (test code = 785-6) 25.0 pg 25.9-32.8 L MCHC (test code = 786-4) 31.5 g/dL 31.6-35.1 L RDW-SD (test code = 69198-3) 43.8 fL 39.0-49.9 RDW-CV (test code = 788-0) 15.2 % 12.0-15.5 PLT (test code = 777-3) 278 See_Comment [Automated messa ge] The system which generated this result transmitted reference range: 166 - 358 10*3/?L. The reference range was not used to interpret this result as normal/abnormal. MPV (test code = 95496-2) 11.1 fL 9.5-12.9 NRBC/100 WBC (test code = 0178962516) 0.0 See_Comment [Automated me ssage] The system which generated this result transmitted reference range: 0.0 - 10.0 /100 WBCs. The reference range was not used to interpret this result as normal/abnormal. NRBC x10^3 (test code = 8130603896) See_Comment [Automated messa ge] The system which generated this result transmitted reference range: 10*3/?L. The reference range was not used to interpret this result as normal/abnormal. GRAN MAT (NEUT) % (test code = 770-8) 47.5 % IMM GRAN % (test code = 6017432599) 0.50 % LYMPH % (test code = 736-9) 41.1 % MONO % (test code = 5905-5) 6.4 % EOS % (test code = 713-8) 3.5 % BASO % (test code = 706-2) 1.0 % GRAN MAT x10^3(ANC) (test code = 7252074504) 2.98 10*3/uL 1.88-7.09 IMM GRAN x10^3 (test code = 4149163611) 0.03 10*3/uL 0.00-0.06 LYMPH x10^3 (test code = 731-0) 2.57 10*3/uL 1.32-3.29 MONO x10^3 (test code = 742-7) 0.40 10*3/uL 0.33-0.92 EOS x10^3 (test code = 711-2) 0.22 10*3/uL 0.03-0.39 BASO x10^3 (test code = 704-7) 0.06 10*3/uL 0.01-0.07 Lab Interpretation (test code = 57237-2) Abnormal [facility] GLUCOSE (AUTOMATED)2023-07-03 00:45:30* Test Item Value Reference Range Interpretation Comme nts POCT GLU (test code = 3132878743) 138 mg/dL 70-110 H Lab Interpretation (test cod e = 19104-4) Abnormal [facility] GLUCOSE(AGE >30DAYS)2023-07-03 00:45:00* Test Item Value Reference Range Interpretation Comme nts POCT Glu (age>30days) (test code = 3342) 138 mg/dL 70-110 A Lab Interpretation (test cod e = 42790-6) Abnormal [facility]Hemoglobin.total in Blood 2022-12-19 00:00:00* Test Item Value Reference Range Interpretation Comme nts Hemoglobin A1c/Hemoglobin.to tosha in Blood (test code = 4548-4) 7.8 % 4.8-5.6 H Glucose mean value [Mass/vol ume] in Blood Estimated from glycated hemoglobin (test code = 27468-4) 177 mg/dL [facility] [Mass/volume] in Serum or Plasma 2022-12-19 00:00:00* Test Item Value Reference Range Interpretation Comme nts Natriuretic peptide B [Mass/ volume] in Serum or Plasma (test code = 65459-0) 3.3 pg/mL 0.0-100.0 [facility] W Auto Differential panel - [id number] 00:00:00 * Test Item Value Reference Range Interpretation Comme nts Leukocytes [#/volume] in Blo od by Automated count (test code = 6690-2) 5.6 x10e3/uL 3.4-10.8 Erythrocytes [#/volume] in Blood by Automated count (test code = 789-8) 4.70 x10e6/uL 3.77-5.28 Hemoglobin [Mass/volume] in Blood (test code = 718-7) 11.3 g/dL 11.1-15.9 Hematocrit [Volume Fraction] of Blood by Automated count (test code = 4544-3) 36.4 % 34.0-46.6 Erythrocyte mean corpuscular volume [Entitic volume] by Automated count (test code = 787-2) 77 fL 79-97 L Erythrocyte mean corpuscular hemoglobin [Entitic mass] by Automated count (test code = 785-6) 24.0 pg 26.6-33.0 L Erythrocyte mean corpuscular hemoglobin concentration [Mass/volume] by Automated count (test code = 786-4) 31.0 g/dL 31.5-35.7 L Erythrocyte distribution wid th [Ratio] by Automated count (test code = 788-0) 14.4 % 11.7-15.4 Platelets [#/volume] in Bloo d by Automated count (test code = 777-3) 307 x10e3/uL 150-450 Neutrophils/100 leukocytes i n Blood by Automated count (test code = 770-8) 54 % not estab. Lymphocytes/100 leukocytes i n Blood by Automated count (test code = 736-9) 35 % not estab. Monocytes/100 leukocytes in Blood by Automated count (test code = 5905-5) 7 % not estab. Eosinophils/100 leukocytes i n Blood by Automated count (test code = 713-8) 3 % not estab. Basophils/100 leukocytes in Blood by Automated count (test code = 706-2) 1 % not estab. Neutrophils [#/volume] in Bl ood by Automated count (test code = 751-8) 3.0 x10e3/uL 1.4-7.0 Lymphocytes [#/volume] in Bl ood by Automated count (test code = 731-0) 1.9 x10e3/uL 0.7-3.1 Monocytes [#/volume] in Bloo d by Automated count (test code = 742-7) 0.4 x10e3/uL 0.1-0.9 Eosinophils [#/volume] in Bl ood by Automated count (test code = 711-2) 0.2 x10e3/uL 0.0-0.4 Basophils [#/volume] in Bloo d by Automated count (test code = 704-7) 0.0 x10e3/uL 0.0-0.2 Immature granulocytes/100 leukocytes in Blood by Automated count (test code = 74342-8) 0 % not estab. Immature granulocytes [#/volume] in Blood by Automated count (test code = 41751-9) 0.0 x10e3/uL 0.0-0.1 [facility] 2000 [facility] - Serum or Plasma 2022-12-19 00:00:00* Test Item Value Reference Range Interpretation Comme nts Glucose [Mass/volume] in Ser um or Plasma (test code = 2345-7) 129 mg/dL 70-99 H Urea nitrogen [Mass/volume] in Serum or Plasma (test code = 3094-0) 12 mg/dL 6-24 Creatinine [Mass/volume] in Serum or Plasma (test code = 2160-0) 0.86 mg/dL 0.57-1.00 Glomerular filtration rate/1.73 sq M.predicted [Volume Rate/Area] in Serum, Plasma or Blood by Creatinine-based formula (CKD-EPI 2020) (test code = 34138-6) 81 mL/min/1.73 >59 Urea nitrogen/Creatinine [Ma ss Ratio] in Serum or Plasma (test code = 3097-3) 14 9-23 Sodium [Moles/volume] in Ser um or Plasma (test code = 2951-2) 142 mmol/L 134-144 Potassium [Moles/volume] in Serum or Plasma (test code = 2823-3) 4.4 mmol/L 3.5-5.2 Chloride [Moles/volume] in Serum or Plasma (test code = 2075-0) 104 mmol/L 96-106 Carbon dioxide, total [Moles/volume] in Serum or Plasma (test code = 2027-) 25 mmol/L 20-29 Calcium [Mass/volume] in Ser um or Plasma (test code = 03490-1) 10.0 mg/dL 8.7-10.2 Protein [Mass/volume] in Ser um or Plasma (test code = 2885-2) 7.5 g/dL 6.0-8.5 Albumin [Mass/volume] in Ser um or Plasma (test code = 1751-7) 4.4 g/dL 3.8-4.9 Globulin [Mass/volume] in Serum by calculation (test code = 04865-7) 3.1 g/dL 1.5-4.5 Albumin/Globulin [Mass Ratio ] in Serum or Plasma (test code = 1759-0) 1.4 1.2-2.2 Bilirubin.total [Mass/volume ] in Serum or Plasma (test code = 1975-2) <0.2 0.0-1.2 Alkaline phosphatase [Enzymatic activity/volume] in Serum or Plasma (test code = 6768-6) 76 IU/L 44-121 Aspartate aminotransferase [Enzymatic activity/volume] in Serum or Plasma (test code = 1920-8) 24 IU/L 0-40 Alanine aminotransferase [Enzymatic activity/volume] in Serum or Plasma (test code = 1742-6) 21 IU/L 0-32 [facility] 1996 [facility] - Serum or [id number] 00:00:00* Test Item Value Reference Range Interpretation Comme nts Cholesterol [Mass/volume] in Serum or Plasma (test code = 2093-3) 210 mg/dL 100-199 H Triglyceride [Mass/volume] i n Serum or Plasma (test code = 2571-8) 82 mg/dL 0-149 Cholesterol in HDL [Mass/vol ume] in Serum or Plasma (test code = 2085-9) 40 mg/dL >39 Cholesterol in VLDL [Mass/vo lume] in Serum or Plasma by calculation (test code = 22746-3) 15 mg/dL 5-40 Cholesterol in LDL [Mass/vol ume] in Serum or Plasma by calculation (test code = 55608-1) 155 mg/dL 0-99 H [facility] CenterThyrotropin [Units/volume] in Serum or Ttyxrq1915-83-08 00:00:00* Test Item Value Reference Range Interpretation Comme nts Thyrotropin [Units/volume] i n Serum or Plasma by Detection limit <= 0.005 mIU/L (test code = 10762-9) 0.249 uIU/mL 0.450-4.500 L [facility] Center[facility]album[facility]/Creatinine [Mass Ratio] in [id number] 00:00:00* Test Item Value Reference Range Interpretation Comme nts Creatinine [Mass/volume] in Urine (test code = 2161-8) 233.2 mg/dL not estab. Microalbumin [Mass/volume] i n Urine (test code = 04528-7) 39.7 ug/mL not estab. Albumin/Creatinine [Mass rat io] in Urine (test code = 9318-7) 17 mg/g creat 029 [facility] Center[facility]yrot[facility]in [Units/volume] in Serum or Plasma by Detection limit <= 0.005 mIU/[id number] 00:00:00* Test Item Value Reference Range Interpretation Comme nts Thyrotropin [Units/volume] i n Serum or Plasma by Detection limit <= 0.005 mIU/L (test code = 11709-2) 0.249 uIU/mL 0.450-4.500 L [facility] Center[facility]/Creatinine [Mass Ratio] in [id number] 00:00:00* Test Item Value Reference Range Interpretation Comme nts Creatinine [Mass/volume] in Urine (test code = 2161-8) 233.2 mg/dL not estab. Microalbumin [Mass/volume] i n Urine (test code = 63099-9) 39.7 ug/mL not estab. Albumin/Creatinine [Mass rat io] in Urine (test code = 9318-7) 17 mg/g creat 029 [facility] CenterCHEM [id number] 10:13:00* Test Item Value Reference Range Interpretation Comme nts Creatinine Lvl (test code = Creatinine Lvl) 0.87 0.50-1.40 Sodium Lvl (test code = Sodium Lvl) 138 135-145 Glucose Lvl (test code = Glucose Lvl) 123 70-99 BUN (test code = BUN) 12 7-22 Potassium Lvl (test code = P otassium Lvl) 4.0 3.5-5.1 Albumin Lvl (test code = Albumin Lvl) 3.3 3.5-5.0 Calcium Lvl (test code = Calcium Lvl) 9.3 8.5-10.5 Total Protein (test code = T otal Protein) 7.4 6.4-8.4 CO2 (test code = CO2) 27 24-32 Chloride Lvl (test code = Chloride Lvl) 104 95-109 Bili Total (test code = Bili Total) 0.1 0.2-1.3 AST (test code = AST) 25 <=37 Alk Phos (test code = Alk Phos) 84 39-136 ALT (test code = ALT) 29 <=65 eGFR (test code = eGFR) 91 AGAP (test code = AGAP) 11.0 10.0-20.0 B/C Ratio (test code = B/C Ratio) 14 1 6-25 Globulin (test code = Globulin) 4.1 2.7-4.2 A/G Ratio (test code = A/G Ratio) 0.8 1 0.7-1.6 [facility]PT:ISOLATE:ORDQN:[id number] 10:13:00* Test Item Value Reference Range Interpretation Comme nts Culture: Urine (test code = Culture: Urine) >100,000 CFU/mL Escherichia coli ESBL <10,000 CFU/mL Skin Deirdre Escherichia coli ESBL (test code = Escherichia coli ESBL) Escherichia coli ESBL [facility]dw[facility]KPOGBSN0455-15-03 10:13:00* Test Item Value Reference Range Interpretation Comme nts MPV (test code = MPV) 8.9 7.4-10.4 RDW (test code = RDW) 14.4 11.5-14.5 MCHC (test code = MCHC) 32.6 32.0-36.0 Platelet (test code = Platelet) 222 133-450 WBC (test code = WBC) 8.8 3.7-10.4 MCH (test code = MCH) 26.9 pg 27.0-31.0 MCV (test code = MCV) 82.4 80.0-98.0 RBC (test code = RBC) 4.65 4.20-5.40 Hct (test code = Hct) 38.3 36.0-48.0 Hgb (test code = Hgb) 12.5 12.0-16.0 Eosinophils # (test code = Eosinophils #) 0.3 <=0.5 Eosinophils (test code = Eosinophils) 2.9 <=4.0 Monocytes (test code = Monocytes) 5.2 2.0-12.0 Lymphocytes (test code = Lymphocytes) 21.9 20.0-40.0 Segs (test code = Segs) 69.5 45.0-75.0 Monocytes # (test code = Monocytes #) 0.5 <=0.8 Lymphocytes # (test code = Lymphocytes #) 1.9 1.0-5.5 Neutrophils # (test code = Neutrophils #) 6.1 1.5-8.1 Basophils (test code = Basophils) 0.5 <=1.0 [facility] AND [id number] 10:13:00* Test Item Value Reference Range Interpretation Comme nts UA Ketones (test code = UA Ketones) Negative UA Urobilinogen (test code = UA Urobilinogen) <=1.0 mg/dL 0.1-1.0 UA Blood (test code = UA Blood) Large *ABN*(03/18/19 5:13 AM) UA pH (test code = UA pH) 5.0 1 5.0-8.0 UA Leuk Est (test code = UA Leuk Est) Moderate *ABN*(03/18/19 5:13 AM) UA Bili (test code = UA Bili) Negative *NA*(03/18/19 5:13 AM) UA Bacteria (test code = UA Bacteria) Few /HPF UA RBC (test code = UA RBC) 21 <=2 UA Nitrite (test code = UA Nitrite) Positive *ABN*(03/18/19 5:13 AM) UA Sq Epi (test code = UA Sq Epi) Occasional /LPF UA WBC (test code = UA WBC) 103 <=5 UA Spec Grav (test code = UA Spec Grav) 1.015 1 UA Color (test code = UA Color) Yellow *NA*(03/18/19 5:13 AM) UA Turbidity (test code = UA Turbidity) Slight *ABN*(03/18/19 5:13 AM) UA Mucus (test code = UA Mucus) Few /LPF UA Protein (test code = UA Protein) Negative mg/dL UA Glucose (test code = UA Glucose) Negative mg/dL [facility][id number] 09:10:00* Test Item Value Reference Range Interpretation Comme nts S Preg (test code = S Preg) Negative *NA*(04/08/18 4:10 AM) Don Dan Notes Date/Time Note Provider Source 2024-12-22 15:25:41 Chief Complaint Patient presents with Physical Patient is fasting Indio Blair MA [facility] 2024-11-03 14:39:39 Chief Complaint Patient presents with Consultation Hiramdanisnegro Stovall a 53 year old female with a past medical history of Past Medical History: Diagnosis Date AR (allergic rhinitis) Asthma ([facility]) Chronic low back pain DM (diabetes mellitus) ([facility]) Hyperlipidemia who presents to clinic with Consultation . her pain is localized to Back. her pain started 10 years ago. The pain has progressively gotten Worse There was not an Inciting event . The pain is described as sharp , aching , dull, and pressure. There is radiation to the bilateral leg patient stated mostly right leg . The pain occurs constantly . The pain is aggravated by bending, sitting, walking, and standing. The pain is alleviated by medications. At its worst the pain is rated as a 10 out of 10, at its best the pain is rated as a 7 out of 10 and on average the pain is rated as a 10 out of 10. So far the patient has tried PT > 6 weeks and Meditation. Current medications include gabapentin , tizanidine and tramadol which they take 2 x's a days or PRN.They have used these for the past 4 years These medications can take their worst pain rating down to a 10 out of 10. Patient denies bowel or bladder incontinence. Patient denies weakness. 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 JEANNINE Jimenez [facility] 2024-06-10 11:07:16 Chief Complaint Patient presents with Sleep Problem X 8 months No other voiced concerns James Sanabria MA, II [facility] 2024-02-16 09:56:32 Chief Complaint Patient presents with Physical Patient is fasting. Randall Castillo MA II T [facility] 2018-04-08 03:15:00 Exam: Spine lumbar 3 views DX, Exam: Spine coccyx DX 2 views History: - Slipped and fell on to buttock 2 days ago; evaluate for fractures Comparison:None. Lumbar spine Findings: The lumbar vertebral body heights and alignment are maintained. No high-grade disc space height loss is noted. Coccyx Findings: No displaced coccygeal fracture is identified. No overt sacral fracture is noted on the nondedicated provided images. The sacroiliac intervals appear maintained. Phleboliths are noted within the pelvis. Mild degenerative changes along the pubic symphysis are noted. Impression: No evidence of a lumbar fracture or subluxation. No displaced coccygeal fracture is identified. SL: NGOC [facility] 2018-04-08 03:15:00 Exam: Spine lumbar 3 views DX, Exam: Spine coccyx DX 2 views History: - Slipped and fell on to buttock 2 days ago; evaluate for fractures Comparison:None. Lumbar spine Findings: The lumbar vertebral body heights and alignment are maintained. No high-grade disc space height loss is noted. Coccyx Findings: No displaced coccygeal fracture is identified. No overt sacral fracture is noted on the nondedicated provided images. The sacroiliac intervals appear maintained. Phleboliths are noted within the pelvis. Mild degenerative changes along the pubic symphysis are noted. Impression: No evidence of a lumbar fracture or subluxation. No displaced coccygeal fracture is identified. SL: UKUDRATH-M [facility] 2015-05-13 00:19:06 CERVICAL SPINE SERIE S, May 13, 2015 12:19:06 AM CLINICAL HISTORY: Pain, Cervical region ; See Clinic Indication TECHNIQUE: Routine AP, lateral, odontoid, and swimmer's views of the cervical spine were obtained. FINDINGS: No acute fracture, subluxation, or dislocation is present in the cervical spine. Normal alignment is maintained. Prevertebral soft tissues are normal. Straightening of the normal cervical lordosis is noted. IMPRESSION: Straightening of the normal cervical lordosis, likely due to c-collar placement or muscle spasm. Otherwise, no acute abnormality of cervical spine. SL: 14 [facility] 2015-05-13 00:19:06 CERVICAL SPINE SERIES, May 13, 2015 12:19:06 AM CLINICAL HISTORY: Pain, Cervical region ; See Clinic Indication TECHNIQUE: Routine AP, lateral, odontoid, and swimmer's views of the cervical spine were obtained. FINDINGS: No acute fracture, subluxation, or dislocation is present in the cervical spine. Normal alignment is maintained. Prevertebral soft tissues are normal. Straightening of the normal cervical lordosis is noted.
[2025-01-07 06:01] LABS: Absolute Basophils 0.1 K/uL (0-0.5); Absolute Eosinophils 0.2 K/uL (0-0.5); Absolute Lymphocytes (CBC) 2.5 K/uL (0.7-4.9); Absolute Monocytes 0.4 K/uL (0.1-1.3); Eosinophils % 2.4 % (0-4.4); Hematocrit 37.6 % (36.0-45.0); Hemoglobin 12.4 g/dL (12.0-15.0); Lymphocytes % 30.8 % (15.3-44.8); MCH 25.8 pg (27.0-35.0); MCV 78.2 fL (80-100); MPV 8.1 fL (7.6-11.3); Monocytes % 4.7 % (3.3-12.3); Neutrophils % 61.1 % (41.7-73.7); Nucleated Red Blood Cells % 0.1 % (0-0); Platelets 245 thou/uL (152-406); RBC Red Blood Cell Count 4.81 M/uL (3.86-4.86); Red Cell Distribution Width 14.9 % (12.1-15.2)
[2025-01-07 06:15] LABS: Albumin 3.7 g/dL (3.4-5.0); Albumin/Globulin Ratio 0.8 (1.1-1.8); Anion Gap 10.5 mEq/L (5.0-15.0); Bilirubin Total 0.2 mg/dL (0.2-1.0); Globulin 4.5 g/dL (2.3-3.5); Potassium 3.5 mEq/L (3.5-5.1); Protein, Total 8.2 g/dL (6.4-8.2)
[2025-01-07] MEDS ORDERED: NA CHLORIDE 0.9% 1,000 ML ONE (06:25)
[2025-01-07] MEDS ORDERED: ONDANSETRON 4 MG/2 ML VIAL ONE (06:25)
[2025-01-07] MEDS ORDERED: KETOROLAC 30 MG/ML INJ ONE (06:25)
--- NOTE | 2025-01-07 08:04 | RAD REPORT ---
EXAMINATION: US Abdomen Exam Limited CLINICAL HISTORY: [facility] MAIN N ABD PAIN Bed Name: 5 COMPARISON: None. TECHNIQUE: Limited upper abdominal grayscale and color flow sonographic images. FINDINGS: Gallbladder: Normal. No wall thickening or pericholecystic fluid. No gallstones. Bile ducts: No intrahepatic or extrahepatic biliary dilatation. Common bile duct measures 6 mm. Liver: Visualized portions of the liver demonstrate normal echogenicity with no suspicious findings. Fluid: No ascites. IMPRESSION: No abnormalities on right upper quadrant ultrasound.
--- NOTE | 2025-01-07 08:15 | EDPHYS ---
Physician Documentation [facility] Name: Jesus Manuel Lopez Age: 54 yrs Sex: Female : 1970 Arrival Date: 01/07/2025 Time: 05:24 Bed 5 Private MD: ED Physician Yoni Dela Cruz HPI: 01/07 06:43 This 54 yrs old Black Female presents to ER via Wheelchair with complaints of RIGHT gb1 SIDE ABD PAIN. 06:43 54-year-old -Cymro female with right-sided upper abdominal pain. Patient has gb1 history of herniated disc, diabetes and hypertension. She is currently on Trulicity and she believes that is the cause of her pain. The pain is not associated with food or eating. Is associated with movement. She denies any trauma. She denies any cough, fever or chills. She has had the pain for 6 months to 1 year.. Historical: - Allergies: 05:51 Codeine; ha1 05:51 metformin; ha1 05:51 TOMATOES; ha1 05:51 ORANGES; ha1 - Home Meds: 05:51 Trulicity subcutaneous [Active]; ha1 - PMHx: 05:29 DM; herniated disk; HTN; ha1 - PSHx: 05:29 ; hysterectomy; ha1 - Immunization history:: Adult Immunizations up to date. - Infectious Disease History:: Denies. - Social history:: Smoking status: Patient denies any tobacco usage or history of. Exam: 06:43 Constitutional: This is a well developed, well nourished patient who is awake, alert, gb1 and in no acute distress. Head/Face: Normocephalic, atraumatic. Eyes: Pupils equal round and reactive to light, extra-ocular motions intact. Lids and lashes normal. Conjunctiva and sclera are non-icteric and not injected. Cornea within normal limits. Periorbital areas with no swelling, redness, or edema. ENT: Nares patent. No nasal discharge, no septal abnormalities noted. Tympanic membranes are normal and external auditory canals are clear. Oropharynx with no redness, swelling, or masses, exudates, or evidence of obstruction, uvula midline. Mucous membranes moist. Neck: Trachea midline, no thyromegaly or masses palpated, and no cervical lymphadenopathy. Supple, full range of motion without nuchal rigidity, or vertebral point tenderness. No Meningismus. Chest/axilla: Normal chest wall appearance and motion. Nontender with no deformity. No lesions are appreciated. Cardiovascular: Regular rate and rhythm with a normal S1 and S2. No gallops, murmurs, or rubs. Normal PMI, no JVD. No pulse deficits. Respiratory: Lungs have equal breath sounds bilaterally, clear to auscultation and percussion. No rales, rhonchi or wheezes noted. No increased work of breathing, no retractions or nasal flaring. Abdomen/GI: Soft, right upper quadrant tenderness, with normal bowel sounds. No distension or tympany. No guarding or rebound. Skin: Warm, dry with normal turgor. Normal color with no rashes, no lesions, and no evidence of cellulitis. Neuro: Awake and alert, GCS 15, oriented to person, place, time, and situation. Cranial nerves II-XII grossly intact. Motor strength 5/5 in all extremities. Sensory grossly intact. Cerebellar exam normal. Normal gait. Vital Signs: 05:29 BP 189 / 90; Pulse 84; Resp 18 S; Temp 98.4; Pulse Ox 100% on R/A; Weight 84.82 kg; ha1 Height 5 ft. 5 in. ; Pain 10/10; 06:07 BP 150 / 91; Pulse 90; Resp 18; Temp 97.9; Pulse Ox 98% on R/A; km10 08:02 BP 127 / 82; Pulse 84; Resp 18; Pulse Ox 97% on R/A; ph 08:30 BP 131 / 85; Pulse 79; Resp 16; Pulse Ox 98% ; bp 05:29 Body Mass Index 31.12 (84.82 kg, 165.1 cm) ha1 05:29 Pain Scale: Adult ha1 MDM: 05:34 Medical Screening Exam initiated gb1 06:43 Data reviewed: vital signs, nurses notes. ED course: 54-year-old -[place]ym[place] gb1 female with right sided upper abdominal pain. Consider acute close cystitis versus biliary colic. Also consider acute pancreatitis. Doubt small bowel obstruction or acute appendicitis. Disposition per the right upper quadrant ultrasound. If negative can move toward CT if pain is not improved within the distal treatment here in the emergency department. I will change transition patient's care to Dr. Frost at 0700 pending the radiological imaging results.. 08:16 Differential diagnosis: Nonspecific abdominal pain, cholecystitis, cholelithiasis. I rt considered the following discharge prescriptions or medication management in the emergency department Medications were administered in the Emergency Department. See MAR. Test considered but Not performed: CT: Benign abdominal exam, symptoms improving with treatment in the ED, unremarkable labs, CT scan is not indicated. Care significantly affected by the following chronic conditions: Diabetes. Counseling: I had a detailed discussion with the patient and/or guardian regarding the historical points, exam findings, and any diagnostic results supporting the discharge/admit diagnosis, lab results, radiology results, the need for outpatient follow up, to return to the emergency department if symptoms worsen or persist or if there are any questions or concerns that arise at home. Response to treatment: the patient's symptoms have markedly improved after treatment. 01/07 05:34 Order name: CBC with Diff; Complete Time: 06:13 gb1 01/07 05:34 Order name: CMP; Complete Time: 06:19 gb1 01/07 05:34 Order name: Lipase; Complete Time: 06:19 gb1 01/07 06:19 Order name: US Abdomen Limited; Complete Time: 08:09 gb1 01/07 05:34 Order name: IV Saline Lock; Complete Time: 05:49 gb1 01/07 05:34 Order name: Labs collected and sent; Complete Time: 05:49 gb1 Administered Medications: 06:35 Drug: Ketorolac IVP 30 mg IVP once Route: IVP; Site: left antecubital; km10 06:49 Follow up: Response: No adverse reaction; Pain is decreased 10 06:35 Drug: Ondansetron IVP 4 mg IVP once; over 2 minutes Route: IVP; Site: left antecubital; km10 06:49 Follow up: Response: No adverse reaction 10 06:35 Drug: NS 0.9% IV 1000 ml IV at 1 bolus Per protocol; to be given as a bolus over 60 km10 minutes Route: IV; Rate: 1 bolus; Site: left antecubital; 08:31 Follow up: IV Status: Completed infusion bp Disposition Summary: 01/07/25 08:15 Discharge Ordered Notes: Location: Home rt Problem: new rt Symptoms: have improved rt Condition: Stable rt Diagnosis - Abdominal pain, unspecified rt Followup: rt - With: Private Physician - When: 2 - 3 days - Reason: Discharge Instructions: - Discharge Summary Sheet rt - Abdominal Pain, Adult rt Forms: - Medication Reconciliation Form rt - Antibiotic Education rt - Prescription Opioid Use rt - Patient Portal Instructions rt - Leadership Thank You Letter rt Signatures: Dispatcher [employer] Amy Eduardo RN RN ha1 Yoni Dela Cruz MD MD rt Salena Lopez MD MD 1 Zoya Sepulveda RN RN km10 Cipriano Campbell RN bp Corrections: (The following items were deleted from the chart) 05:54 05:29 Allergies: No Known Allergies; ha1 ha1
--- NOTE | 2025-01-07 08:15 | ER ---
Nurse's Notes [facility] Name: Jesus Manuel Lopez Age: 54 yrs Sex: Female : 1970 Arrival Date: 01/07/2025 Time: 05:24 Bed 5 Private MD: Diagnosis: Abdominal pain, unspecified Presentation: 01/07 05:29 Chief complaint: Patient states: RIGHT UPPER QUADRANT PAIN FOR SIX MONTH I TOLD MY ha1 PRIMARY CARE PROVIDER AND HE LOWER MY DOSAGE OF THE TRULICITY MEDICATION. SYMPTOMS NOT IMPROVED AND TONIGHT THE PAIN IS INTOLERABLE . NAUSEA. 05:29 Coronavirus screen: Client denies travel out of the [place] in the last 14 days. Ebola ha1 Screen: No symptoms or risks identified at this time. Initial Sepsis Screen: Does the patient meet any 2 criteria? No. Patient's initial sepsis screen is negative. Does the patient have a suspected source of infection? No. Patient's initial sepsis screen is negative. Risk Assessment: Do you want to hurt yourself or someone else? Patient reports no desire to harm self or others. Onset of symptoms was January 07, 2025. 05:29 Method Of Arrival: Wheelchair ha1 05:29 Acuity: TONE 3 ha1 Triage Assessment: 05:29 General: Appears uncomfortable, Behavior is cooperative, anxious. Pain: Complains of ha1 pain in right upper quadrant Pain currently is 10 out of 10 on a pain scale. Quality of pain is described as throbbing, Pain began gradually. Neuro: Level of Consciousness is awake, alert, obeys commands, Oriented to person, place, time, situation, Appropriate for age. Cardiovascular: Capillary refill < 3 seconds Patient's skin is warm and dry. Respiratory: Airway is patent Respiratory effort is even, unlabored, Respiratory pattern is regular, symmetrical. GI: Abdomen is round non-distended, obese, Bowel sounds present X 4 quads. Reports upper abdominal pain, nausea. : No signs and/or symptoms were reported regarding the genitourinary system. Derm: No signs and/or symptoms reported regarding the dermatologic system. Skin is healthy with good turgor, Skin is moist, Skin is normal. Musculoskeletal: Circulation, motion, and sensation intact. Range of motion: intact in all extremities. Historical: - Allergies: 05:51 Codeine; ha1 05:51 metformin; ha1 05:51 TOMATOES; ha1 05:51 ORANGES; ha1 - Home Meds: 05:51 Trulicity subcutaneous [Active]; ha1 - PMHx: 05:29 DM; herniated disk; HTN; ha1 - PSHx: 05:29 ; hysterectomy; ha1 - Immunization history:: Adult Immunizations up to date. - Infectious Disease History:: Denies. - Social history:: Smoking status: Patient denies any tobacco usage or history of. Screenin:49 [facility] ED Fall Risk Assessment (Adult) History of falling in the last 3 months, ha1 including since admission No falls in past 3 months (0 pts) Confusion or Disorientation No (0 pts) Intoxicated or Sedated No (0 pts) Impaired Gait No (0 pts) Mobility Assist Device Used No (0 pt) Altered Elimination No (0 pt) Score/Fall Risk Level 0 - 2 = Low Risk Oriented to surroundings, Maintained a safe environment, Educated pt \T\ family on fall prevention, incl call for assistance when getting out of bed, Hourly rounding (assess needs \T\ fall precautionary measures) done. Abuse screen: Denies threats or abuse. Denies injuries from another. Nutritional screening: No deficits noted. Tuberculosis screening: No symptoms or risk factors identified. Assessment: 06:04 General: Appears uncomfortable, Behavior is cooperative, restless. Pain: Complains of km10 pain in abdomen Pain currently is 8 out of 10 on a pain scale. Pain began 6 months ago, worse today Noted to be moaning. 06:05 Neuro: Level of Consciousness is awake, alert, Oriented to person, place, time, km10 situation. Cardiovascular: Patient's skin is warm and dry. Cardiovascular: Edema is 1+ to left ankle, left foot, left toes, right ankle, right foot and right toes Rhythm is regular. Respiratory: Respiratory effort is even, unlabored. GI: Abdomen is round Reports upper abdominal pain. 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 km10 06:48 Reassessment: Patient and/or family updated on plan of care and expected duration. Pain ha1 level reassessed. Patient is alert, oriented x 3, equal unlabored respirations, skin warm/dry/pink. Vital Signs: 05:29 BP 189 / 90; Pulse 84; Resp 18 S; Temp 98.4; Pulse Ox 100% on R/A; Weight 84.82 kg; ha1 Height 5 ft. 5 in. ; Pain 10/10; 06:07 BP 150 / 91; Pulse 90; Resp 18; Temp 97.9; Pulse Ox 98% on R/A; km10 08:02 BP 127 / 82; Pulse 84; Resp 18; Pulse Ox 97% on R/A; ph 08:30 BP 131 / 85; Pulse 79; Resp 16; Pulse Ox 98% ; bp 05:29 Body Mass Index 31.12 (84.82 kg, 165.1 cm) ha1 05:29 Pain Scale: Adult ha1 ED Course: 05:28 Patient arrived in ED. gm2 05:29 Patient has correct armband on for positive identification. Bed in low position. Call ha1 light in reach. Side rails up X2. 05:31 Salena Lopez MD is Attending Physician. gb1 05:47 Triage completed. ha1 05:49 CBC with Diff Sent. km10 05:49 CMP Sent. km10 05:49 Lipase Sent. km10 05:54 Zoya Sepulveda, [place] is Primary Nurse. km10 05:54 Inserted saline lock: 20 gauge in left antecubital area, using aseptic technique. km10 06:59 US Abdomen Limited In Process Unspecified. EDMS 07:00 Attending Physician role handed off by Salena Lopez MD rt 07:00 Yoni Dela Cruz MD is Attending Physician. rt 08:06 Arm band placed on. ph 08:31 No provider procedures requiring assistance completed. IV discontinued, intact, bp bleeding controlled, No redness/swelling at site. Pressure dressing applied. Administered Medications: 06:35 Drug: Ketorolac IVP 30 mg IVP once Route: IVP; Site: left antecubital; km10 06:49 Follow up: Response: No adverse reaction; Pain is decreased 10 06:35 Drug: Ondansetron IVP 4 mg IVP once; over 2 minutes Route: IVP; Site: left antecubital; km10 06:49 Follow up: Response: No adverse reaction 10 06:35 Drug: NS 0.9% IV 1000 ml IV at 1 bolus Per protocol; to be given as a bolus over 60 km10 minutes Route: IV; Rate: 1 bolus; Site: left antecubital; 08:31 Follow up: IV Status: Completed infusion bp Medication: 08:06 VIS not applicable for this client. ph Outcome: 08:15 Discharge ordered by . rt 08:31 Discharged to home ambulatory, with family, bp 08:31 Condition: stable 08:31 Discharge instructions given to patient, Instructed on discharge instructions, follow up and referral plans. Demonstrated understanding of instructions, follow-up care, 08:31 Patient left the ED. bp Signatures: Dispatcher [employer] EDSangita Escobedo RN RN ph Cipriano Campbell RN RN bp Amy Mortensen RN RN ha1 Yoni Dela Cruz MD MD rt Salena Lopez MD MD gb1 Melania Villagomez 2 Zoya Sepulveda RN RN km10 Corrections: (The following items were deleted from the chart) 05:54 05:29 Allergies: No Known Allergies; ha1 ha1 06:07 06:04 Pain: Complains of pain in abdomen Pain currently is 8 out of 10 on a pain scale. km10 Pain began Is chronic, km10
[2025-01-07 08:38] VITALS: TEMP 97.9
[2025-01-07 08:41] VITALS: BP 131/85; O2SAT 98
== END 2025-01-07 08:31 | disposition home or self-care (01) ==
LOC: ER 05:24
DX: R10.11 Right upper quadrant pain (principal); E11.9 Type 2 diabetes mellitus without complications; I10 Essential (primary) hypertension
CPT/HCPCS: 36415; 76705; 80053; 83690; 85025; 96361; 96374; 96375; 99284; J2405; J7030